=== PATIENT | female | born 1950 | race Caucasian/White ===

== ENCOUNTER 2017-08-09 09:38 | Inpatient (IN) | payer MEDICARE, BC ==
[2017-08-09 10:31] LABS: PTT 33.5 SEC (22.9-36.1); Prothrombin Time 14.6 SEC (12.0-14.7)
[2017-08-09 10:49] LABS: ALT (SGPT) 7 U/L (8-55); AST (SGOT) 10 U/L (5-34); Alkaline Phosphatase 68 U/L (40-150); Anion Gap 13 mmol/L (10-20); BUN (Urea Nitrogen) 13 mg/dL (9.8-20.1); Bilirubin, Total 0.4 mg/dL (0.2-1.2); CK (CPK) 18 U/L (29-168); Calc. Creatinine Clearance 0 mL/min (70-130); Calcium 8.5 mg/dL (7.8-10.44); Carbon Dioxide 24 mmol/L (23-31); Chloride 105 mmol/L (98-107); Estimated GFR-MDRD 47; Globulin 3.7 g/dL (2.4-3.5); Lipase Less than 4 U/L (8-78); Protein, Total 6.4 g/dL (6.0-8.3)
--- NOTE | 2017-08-09 10:51 | RAD ---
AP VIEW CHEST: HISTORY: Dyspnea. DATE: 08/09/17. COMPARISON: Comparison is made to previous exam from 04/29/17. FINDINGS: AP view chest demonstrates sternotomy wires seen. The lungs are well aerated. Mild pulmonary vascu lar congestion is seen. Mild cardiomegaly noted. Bilateral breast calcified implants seen. IMPRESSION: Mild cardiomegaly and pulmonary vascular congestion. No acute intrathoracic abnormality is seen. POS: [facility]
[2017-08-09 10:53] LABS: Troponin I Less than 0.010 ng/mL (< 0.028)
[2017-08-09 11:02] LABS: #Eosinphils 0.2 thou/uL (0.0-0.7); #Lymphocytes 1.8 thou/uL (1.20-3.40); #Monocytes 0.4 thou/uL (0.11-0.59); #Neutrophils 9.3 thou/uL (1.40-6.50); %Basophils 0.1 % (0.0-1.0); %Eosinophils 1.3 % (0.0-10.0); %Lymphocytes 15.2 % (21.0-51.0); %Monocytes 3.7 % (0.0-10.0); Mean Platelet Volume 9.8 fL (7.4-10.4); Red Blood Cell (RBC) Count 2.74 mill/uL (4.20-5.40); White Blood Cell (WBC) Count 11.7 thou/uL (4.8-10.8)
[2017-08-09] MEDS ORDERED: Furosemide 40 MG/4 ML VIAL ONE (13:05)
[2017-08-09] MEDS ORDERED: Ondansetron HCl/PF 4 MG/2 ML Vial IVP PRN (13:53)
[2017-08-09] MEDS ORDERED: Ondansetron ODT 4 MG TAB SL PRN (13:53)
[2017-08-09] MEDS ORDERED: FLU VACC QS2017-18 36 mo. & older 0.5 ML SYRINGE IM ONE (14:45)
[2017-08-09 14:55] LABS: Troponin I Less than 0.010 ng/mL (< 0.028)
[2017-08-09] MEDS ORDERED: Insulin Regular 300 UNITS/3 ML VIAL SC PRN ×2 (16:53)
[2017-08-09] MEDS ORDERED: Nitroglycerin 0.4 MG TAB (25 Tab Bottle) PO PRN (16:53)
[2017-08-09] MEDS ORDERED: Dextrose 5% in Water 1,000 ML IV PRN (16:53)
[2017-08-09] MEDS ORDERED: Dextrose 50% Abboject 50 ML SYRINGE SLOW IVP PRN (16:53)
[2017-08-09] MEDS ORDERED: Calcium Carbonate 500 MG ChewTAB PO PRN (17:02)
[2017-08-09] MEDS ORDERED: Acetaminophen 325 MG TAB PO PRN (17:02)
[2017-08-09] MEDS ORDERED: Ondansetron ODT 4 MG TAB PO PRN (17:02)
[2017-08-09] MEDS ORDERED: Loratadine 10 MG TAB PO PRN (17:07)
[2017-08-09] MEDS ORDERED: Eucerin (Mineral Oil/Petrolatum,White) 30 gm Jar TOP PRN (17:07)
[2017-08-09] MEDS ORDERED: cloNIDine HCl 0.1 MG TAB PO PRN (17:07)
[2017-08-09] MEDS ORDERED: Diabetic Tussin 200 MG/10 ML UDCUP PO PRN (17:07)
[2017-08-09 17:22] LABS: Reticulocyte Count 2.2 % (0.5-1.5)
[2017-08-09 17:35] LABS: Iron 15 ug/dL (50-170)
[2017-08-09 17:42] LABS: Troponin I Less than 0.010 ng/mL (< 0.028)
--- NOTE | 2017-08-09 17:56 | HP ---
PRIMARY CARE PHYSICIAN: Dr. Mary Huang. PRIMARY CLERICAL ASSIGNER: Dr. Jean Pierre Hart. PRIMARY HEAD BANDER AND LINER OPERATOR: Dr. Mychal Man. CHIEF COMPLAINT: Abnormal labs. CODE STATUS: FULL CODE. SURROGATE DECISION MAKER: The patient makes her own decisions with the help of her family. HISTORY OF PRESENT ILLNESS: The patient is a 66-year-old female with coronary artery disease status post stent, history of CVA, idiopathic thrombocytopenic purpura, and ischemic colitis. who presente d to the emergency room with abnormal labs. She had a routine labs that was consistent with low blo od counts, for which she was referred to the emergency room. Two weeks ago, the patient had a colonoscopy that was consistent with ischemic colitis. She was sup posed to follow up with Dr. Hart next week for a possible CT scan of the abdomen. She also has int ermittent crampy abdominal pain mainly around the periumbilical area, which is moderate to severe in intensity. She denies any nausea, vomiting. She has on and off dark stool with melanotic smell pe r patient report. No significant change in appetite or weight loss. Over the last 3-4 weeks, the patient also has exertional shortness of breath along with generalized weakness and fatigue. The patient is getting shortness of breath, walking to the bathroom over the last 3-4 days. She also noticed bilateral lower extremity swelling. She does not drink a lot of fl uid per patient report. The shortness of breath is worse on lying down. No chest pain, palpitation s, syncope reported. In the emergency room, her initial vital signs showed temperature 98.2, respirations 17, pulse 71 wi th blood pressure of 136/52 with O2 saturation 97% on room air. Initial labs showed hemoglobin 7.1 with a BNP of 71. She received a dose of Lasix 40 mg and 1 unit of PRBC was ordered. PAST MEDICAL HISTORY: 1. Coronary artery disease with stent placement to the LAD in 10/2016. 2. Ischemic CVA in 11/2016 3. Hypertension. 4. Diabetes mellitus type 2. 5. Dyslipidemia. 6. Ischemic colitis. 7. History of idiopathic thrombocytopenic purpura in 04/2017. She completed prednisone treatment f or 6-7 weeks. 8. Anemia, requiring blood transfusions in the past secondary to GI bleed. 9. Normal left ventricular ejection fraction of 50% to 55% in 11/2016. 10. Paroxysmal atrial fibrillation that spontaneously converted to sinus rhythm in 03/2017. PAST SURGICAL HISTORY: 1. EGD and colonoscopy. 2. Cardiac catheterization. 3. Coronary artery bypass grafting in 2006. 4. Bilateral tubal ligation. 5. Oophorectomy. 6. Breast augmentation. 7. Tummy tuck. 8. Knee surgery. 9. Cholecystectomy. ALLERGIES: The patient is allergic to CIPROFLOXACIN and LISINOPRIL. CURRENT HOME MEDICATIONS: The patient does not remember any of her home medications. She will try to obtain an accurate list later today. FAMILY HISTORY: Negative for premature coronary artery disease, diabetes, and hypertension. SOCIAL HISTORY: She currently lives at home. She denies current use of smoking, alcohol, or drug u se. REVIEW OF SYSTEMS: The following complete review of systems was negative, unless otherwise mentione d in the HPI or below: Constitutional: Weight loss or gain, ability to conduct usual activities. S kin: Rash, itching. Eyes: Double vision, pain. ENT/Mouth: Nose bleeding, neck stiffness, pain, tenderness. Cardiovascular: Palpitations, dyspnea on exertion, orthopnea. Respiratory: Shortness of breath, wheezing, cough, hemoptysis, fever or night sweats. Gastrointestinal: Poor appetite, a bdominal pain, heartburn, nausea, vomiting, constipation, or diarrhea. Genitourinary: Urgency, mikey quency, dysuria, nocturia. Musculoskeletal: Pain, swelling. Neurologic/Psychiatric: Anxiety, dep ression. Allergy/Immunologic: Skin rash, bleeding tendency. PHYSICAL EXAMINATION: VITAL SIGNS: In the emergency room showed temperature 98.2, respirations 17, pulse 71 with blood pr essure 136/52, with O2 saturation 97% on room air. Her lowest blood pressure in the emergency room was 86/53. GENERAL: This is a 66-year-old female in mild respiratory distress, able to complete short sentence s. HEENT: Atraumatic, normocephalic. Sclerae are anicteric, conjunctiva pale. Moist mucous membranes . No oral lesion. NECK: Supple. No carotid bruit. Neck veins somewhat distended. LUNGS: Show bibasilar crackles with scattered rhonchi. HEART: S1 and S2 present. Regular rate and rhythm. Healed midline scar from previous CABG, 2/6 sy stolic murmur over the mitral area. No parasternal heaves or pulsation. ABDOMEN: Soft. There is mild to moderate tenderness over the periumbilical area. No rebound, guar ding, no costovertebral angle tenderness. EXTREMITIES: 2+ edema in bilateral lower extremities. SKIN: Warm and dry. LYMPH NODES: No palpable lymph nodes in the neck. PERIPHERAL VASCULAR: Radial pulses palpable bilaterally. MUSCULOSKELETAL: No joint swelling or tenderness. SKIN: Warm and dry. NEUROLOGIC: Grossly nonfocal, moves all four extremities. PSYCHIATRY: Alert, awake, oriented x3. LABORATORY FINDINGS: As discussed above. Creatinine was 1.17 with BUN 13, albumin 2.7. Cardiac en zymes were normal. MCV was 84.2 with MCH 25.9, platelet count of 72. IMAGING: EKG by my review showed sinus rhythm with pathological Q-waves in lead [address]-T wave changes mainly in lead 3. Chest x-ray by my review was consistent with pulmonary vascular congestion. IMPRESSION: 1. Acute congestive heart failure exacerbation, suspected diastolic precipitated by underlying anem ia. 2. Anemia, suspected secondary to chronic gastrointestinal blood loss from ischemic colitis. 3. Acute on chronic gastrointestinal bleeding. 4. Coronary artery disease, status post coronary artery bypass grafting and stent placement. 5. History of cerebrovascular accident. 6. Thrombocytopenia. The patient also has a history of idiopathic thrombocytopenic purpura earlier this year. 7. Chronic kidney disease, stage 3. 8. Hypertension. 9. Diabetes mellitus type 2. 10. Dyslipidemia. 11. Moderate protein calorie malnutrition. 12. Obesity with a BMI of 34.2. PLAN: The patient will be monitored on the telemetry unit. We will continue gentle diuresis with c areful monitoring of renal function. She will receive blood transfusion today. We will consult Gas troenterology and Cardiology. Serial cardiac enzymes have been negative. Echocardiogram will be re peated. Pain control with narcotics. Nebulizer treatment as needed. Insulin sliding scale. We wi ll resume home medications once confirmed. Plan of care was discussed with the patient. She stated understanding.
[2017-08-09] MEDS ORDERED: Furosemide 40 MG/4 ML VIAL SLOW IVP SCH (21:00)
[2017-08-09] MEDS ORDERED: Metoprolol Tartrate 25 MG TAB PO SCH (23:30)
[2017-08-10] MEDS: Acetaminophen/Codeine 30-300mg Tablet PO PRN ×2 (03:51→20:41)
[2017-08-10] MEDS: Ondansetron HCl/PF 4 MG/2 ML Vial IVP PRN ×2 (03:54→17:57)
[2017-08-10] MEDS ORDERED: ISOVUE-370 76%-LOCM 1 ML ONE (04:06)
[2017-08-10] MEDS ORDERED: Furosemide 40 MG/4 ML VIAL SLOW IVP SCH (06:00)
[2017-08-10 06:51] LABS: #Eosinphils 0.3 thou/uL (0.0-0.7); #Lymphocytes 1.5 thou/uL (1.20-3.40); #Monocytes 0.8 thou/uL (0.11-0.59); #Neutrophils 9.4 thou/uL (1.40-6.50); %Basophils 0.3 % (0.0-1.0); %Eosinophils 2.1 % (0.0-10.0); %Lymphocytes 12.7 % (21.0-51.0); %Monocytes 6.6 % (0.0-10.0); Hematocrit 29.9 % (36.0-47.0); Red Blood Cell (RBC) Count 3.53 mill/uL (4.20-5.40)
[2017-08-10 07:14] LABS: ALT (SGPT) Less than 7 U/L (8-55); AST (SGOT) 11 U/L (5-34); Alkaline Phosphatase 75 U/L (40-150); Anion Gap 12 mmol/L (10-20); BUN (Urea Nitrogen) 17 mg/dL (9.8-20.1); Bilirubin, Total 0.6 mg/dL (0.2-1.2); Calc. Creatinine Clearance 73 mL/min (70-130); Calcium 8.4 mg/dL (7.8-10.44); Carbon Dioxide 25 mmol/L (23-31); Chloride 105 mmol/L (98-107); Estimated GFR-MDRD 52; Globulin 3.4 g/dL (2.4-3.5); Magnesium 1.6 mg/dL (1.6-2.6); Phosphorus 4.1 mg/dL (2.3-4.7); Protein, Total 6.1 g/dL (6.0-8.3)
[2017-08-10] MEDS: Multivit, Therapeutic 1 TAB PO SCH (09:14)
[2017-08-10] MEDS: Aspirin 81 mg Enteric Coated Tablet PO SCH (09:14)
--- NOTE | 2017-08-10 11:08 | CT ---
CT ARTERIOGRAM ABDOMEN AND PELVIS WITH IV CONTRAST AND 3D MIP IMAGING: HISTORY: Abdominal pain. Recurrent colitis. COMPARISON: 04/28/17. FINDINGS: There is good contrast opacification of the aorta and mesenteric arteries. Mild atherosclerosis is present without significant narrowing. Renal arteries are patent. Minimal bilateral pleural fluid is present. Bilateral breast implants are partially visualized. Th e gallbladder is surgically absent. There are degenerative changes of the lumbar spine. A small am ount of fat protrudes into an umbilical hernia. Subtle circumferential wall thickening involves the upper right colon and the transverse colon. The oval hyperdense mass at the left adnexa is unchanged in appearance from the prior exam. IMPRESSION: 1. Long-segment colitis involving the right colon and transverse colon. No arterial obstruction is evident on this exam. The central visceral arteries are widely patent. 2. Small bilateral pleural effusions. 3. Chronic-type findings are stable. POS: [facility]
--- NOTE | 2017-08-10 12:49 | PDOC.PN ---
- Subjective Encounter Start Date: 08/10/17 Encounter Start Time: 12:40 Subjective: f/u for ischemic colitis and GI bleed s/p 2u PRBC's. Feels ok overall -: with some blood in stool. CT abd showing right and transverse colon -: involvement. - Objective Resuscitation Status: Resuscitation Status FULL:Full Resuscitation MAR Reviewed: Yes Vital Signs & Weight: Vital Signs (12 hours) Temp Pulse Pulse Pulse Resp BP BP 08/10/17 12:21 98.1 F 62 18 08/10/17 11:08 08/10/17 09:09 98 F 57 L 18 08/10/17 09:06 57 L 62 151/65 H 141/63 H 08/10/17 04:00 58 L 20 BP BP BP BP Pulse Ox 08/10/17 12:21 120/58 L 96 08/10/17 11:08 97 08/10/17 09:09 134/61 151/65 H 135/64 97 08/10/17 09:06 08/10/17 04:00 155/70 H Weight Weight 190 lb 4 oz I&O: 08/09/17 08/10/17 08/11/17 06:59 06:59 06:59 Intake Total 200 Output Total 900 Balance -700 Result Diagrams: 08/10/17 05:50 08/10/17 05:50 Additional Labs: Accuchecks 08/10/17 08/10/17 08/09/17 09:15 05:54 23:25 POC Glucose 188 H 117 H 110 08/09/17 08/09/17 20:43 18:06 POC Glucose 154 H 107 Laboratory Tests 08/09/17 08/10/17 08/10/17 10:12 05:47 05:50 WBC 11.7 H Hgb 7.1 L Plt Count 72 L Neutrophils % 79.7 H 78.3 H Vitamin B12 Greater than 2000 H Folate 14.10 Radiology Reviewed by me: Yes (CT a/p - colitis of R and transverse segments, no vascular stenosis) EKG Reviewed by me: Yes (Tele - SR in 60's) Phys Exam - Physical Examination Constitutional: NAD HEENT: PERRLA, oral pharynx no lesions Neck: no JVD, supple Respiratory: no wheezing, clear to auscultation bilateral Cardiovascular: RRR mild TTP Gastrointestinal: soft, no distention, positive bowel sounds Musculoskeletal: no edema, pulses present Neurological: normal sensation, moves all 4 limbs Psychiatric: A&O x 3 Skin: normal turgor, cap refill <2 seconds Dx/Plan (1) Ischemic colitis Code(s): K55.9 - VASCULAR DISORDER OF INTESTINE, UNSPECIFIED Status: Acute Comment: Supportive measures currently, CT angio of abd showed no focal stenosis , consider abx ppx (2) Acute blood loss anemia Code(s): D62 - ACUTE POSTHEMORRHAGIC ANEMIA Status: Acute Comment: s/p 2u PRBC's, H/H improved, repeat CBC in am (3) Chronic ITP (idiopathic thrombocytopenia) Code(s): D69.3 - IMMUNE THROMBOCYTOPENIC PURPURA Status: Acute Comment: Acute/chronic ITP, consult Hematology, may need to restart steroids given decline in platelets, repeat platelets in am (4) DM2 (diabetes mellitus, type 2) Status: Chronic Qualifiers: Diabetes mellitus complication status: with unspecified complications Diabetes mellitus prison insulin use: with prison use Qualified Code(s) : E11.8 - Type 2 diabetes mellitus with unspecified complications; Z79.4 - terminal carman (current) use of insulin Comment: ISS, hold long-acting insulin pending consistent po intake (5) HTN (hypertension) Code(s): I10 - ESSENTIAL (PRIMARY) HYPERTENSION Status: Chronic Qualifiers: Hypertension type: essential hypertension Qualified Code(s): I10 - Essential (primary) hypertension Comment: Resume home antihypertensive regimen, serial monitoring - Plan out of bed/ambulate, DVT proph w/SCDs Stable currently -: Resume home antihypertensive regimen -: Protonix 40mg BID -: GI consult appreciated -: Consult Hematology service regarding restarting Prednisone * D/C Lasix * Am lab: BMP, CBC
--- NOTE | 2017-08-10 13:27 | CON ---
DATE OF CONSULTATION: 08/10/2017 GI INPATIENT CONSULTATION NOTE REQUESTING PHYSICIAN: Dr. Barnes. REASON FOR CONSULTATION: Ischemic colitis. HISTORY OF PRESENT ILLNESS: Katie Dickinson is a 66-year-old woman known to my GI colleague, Dr. Rony Hart. She has a significant history of vascular disease with CAD and CABG in 2006, recent stent placement in 10/2016, CVA in 11/2016 and then diagnosis over the last summer of ITP. She also had been having some GI bleeding and in 03/2017, Dr. Hart performed EGD and colonoscopy, this showed a few erosions in the second and third portions of the duodenum and multiple erosions and ulcerations throughout the right colon, sigmoid colon, and splenic flexure with biopsies consistent with ischemi c colitis. Unfortunately, she continued to have intermittent abdominal discomfort basically in the periumbilical area as well as intermittent black and red stools. She underwent repeat colonoscopy j ust a couple of weeks ago on 07/30/2017 and this again demonstrated ulceration of the ileocecal valv e and then a region of the splenic flexure. Biopsies were again consistent with ischemic colitis. Dr. Hart had ordered an outpatient CT angiogram of the abdomen which was set to happen later this w [place]. The patient, however, was found to have worsening anemia and was admitted to the hospital for this reason. She does report some increasing shortness of breath and fatigue over the past few week s. The crampy periumbilical pain is intermittent. She also intermittently will have black stools o r reddish tint to the stools. There is no nausea or vomiting or weight loss. She has had very loos e stools since her colonoscopy a couple of weeks ago. Admission hemoglobin was 7.1 and this went up to 9.5 with 2 units of RBCs, platelets are 69. PAST MEDICAL HISTORY: Coronary artery disease status post CABG in 2006, cardiac stent placement in 10/2016, CVA 11/2016, ITP diagnosed in summer, ischemic colitis diagnosed earlier 2016, hype rtension, hyperlipidemia, diabetes, paroxysmal atrial fibrillation. PAST SURGICAL HISTORY: Cholecystectomy, knee surgery, bilateral tubal ligation, oophorectomy. ALLERGIES: CIPROFLOXACIN and LISINOPRIL. OUTPATIENT MEDICATIONS: Metoprolol, Prozac, Zyrtec, aspirin 325 mg daily, gabapentin, Flonase, losa rtan, Imdur, DuoNeb, insulin, Dulera, Robaxin, Crestor, Protonix 40 mg b.i.d., montelukast, predniso ne 50 mg b.i.d., clonidine and Januvia. SOCIAL HISTORY: No smoking, alcohol, or drug use. FAMILY HISTORY: Maternal aunt and paternal uncle had colon cancer. PHYSICAL EXAMINATION: VITAL SIGNS: Temperature 98.8, pulse 58, blood pressure 155/70, 94% oxygen saturation on room air. GENERAL: A 66-year-old woman lying in bed comfortably in no distress, mentally alert and fully orie nted, pleasant, conversational, gives a detailed history. SKIN: No jaundice, no rashes were palpable. EYES: No scleral icterus. Extraocular movements intact. ENT: Mucous membranes moist, no oral lesions. LYMPH: No submandibular or supraclavicular lymphadenopathy. THYROID: Nontender to palpation. HEART: Regular rate and rhythm. LUNGS: Clear to auscultation bilaterally. ABDOMEN: Bowel sounds present, soft, some tenderness to palpation in the epigastrium and periumbili mily area. No guarding or rebound tenderness. EXTREMITIES: No peripheral edema. VESSELS: Radial pulses 2+ bilaterally. NEUROLOGICAL: Cranial nerves II-XII intact bilaterally. No focal deficits. LABORATORY STUDIES: WBC 12, hemoglobin initially 7.1 now up to 9.5 after 2 units transfused, platel ets 69. INR 1.1, BUN 17, creatinine 1.07, glucose 117, total bilirubin 0.6, alkaline phosphatase 75 , AST 11, ALT less than 7, albumin 2.7, folic acid 11. Lipase less than 4. Ferritin 49, iron 15, T IBC 239 (mixed iron studies). IMAGING STUDIES: Chest x-ray showed mild cardiomegaly and pulmonary vascular congestion. ASSESSMENT AND PLAN: 1. Recurrent gastrointestinal bleeding. 2. Anemia of chronic gastrointestinal blood loss. 3. Recurrent/chronic ischemic colitis. The patient's presentation is consistent with chronic ische celine colitis and gastrointestinal blood loss from that, she had a colonoscopy just within the past co uple of weeks and I do not think there is any utility to repeating endoscopic examination at this ti me. Dr. Hart had planned for CT angiogram of the abdomen and I agree with this plan. We will go ea and get that while inpatient. I will also see she had an echocardiogram done earlier this noemi leonard, which I agree. We will follow results on that. Further recommendations depend on results of CT and echocardiogram.
[2017-08-10] MEDS: Mometasone/Formoterol 120 PUFF INHALER INH SCH (20:11)
--- NOTE | 2017-08-10 20:34 | CON ---
CARDIOLOGY CONSULTATION NOTE DATE OF CONSULTATION: 08/10/2017 INDICATION FOR CONSULTATION: Consideration for congestive heart failure symptoms, anemia, history o f coronary artery disease with increasing shortness of breath, fatigue and thrombocytopenia as well as anemia. HISTORY OF PRESENT ILLNESS: This is a very unfortunate 66-year-old female who has a very extensive past medical history. From a cardiac standpoint, she has been seen by Dr. Man. She has under gone cardiac catheterization. She has had bypass surgery. She has had a stent placed to the distal left anterior descending artery via the left internal mammary artery approach with a drug-coated st ent in November of this year. She was placed with a 2.5 x 12 mm drug-coated stent, which was dilated up to 3.0 mm and she has had no significant cardiac chest pains or symptoms since that time. She s aid she had shortness of breath prior to the procedure and was having some ischemic changes; however , since the procedure, she has not noticed that her shortness of breath has improved. She did have some problems approximately a week or so after the angioplasty and stent placement. She had a small CVA, which is most likely from an embolic event. She had also previously had a CVA in the past man y years ago. She had been placed on Plavix for 6 months after the stent placement. She had develop ed at that time thrombocytopenia and also ITP which is felt possibly due to the Plavix. This medici ne had already been stopped prior to noting that the platelets were significantly decreased, but it had only been a week or so. She had also noticed some GI bleeding. She had anemia. This was back in April when she had a GI bleed, apparently with significant anemia. The platelets also had recover ed and now she again for the last couple of weeks has noticed increasing shortness of breath and low er extremity edema. She presented to the primary care physician and was again found to have thrombo cytopenia as well as anemia and she was advised to go to the emergency room for further evaluation a nd treatment. On arrival, her hemoglobin was 7.1, the platelet counts are less than 100,000. She i s not having any chest pain. Her EKG do not show any acute changes, but she does have some mild low er extremity edema. She has been given IV Lasix and has diuresed quite well. She feels somewhat be tter, but still fatigued and has some shortness of breath. At this time, overall from a cardiac sta ndpoint, she remains in sinus rhythm without chest pain and appears to be relatively stable except f or the associated symptoms with the anemia. She has undergone further evaluation today, has not had any significant findings as an etiology for this significant anemia except for the previous, I mauricio vidhya some polyps in the past, but she has had no significant findings on CT angiogram that would shona efrain severe arterial stenosis involving the colon area. She has had, during her scopes, colitis an d inflammation, which was felt to be ischemic colitis causing some of her GI bleeding issues. She h as been taking aspirin 325 mg a day on a routine basis. PAST MEDICAL AND SURGICAL HISTORY: Her past medical history is consistent with paroxysmal atrial fi brillation. She has remained in sinus rhythm. She also has hypertension, coronary artery disease, status post bypass surgery, status post angioplasty and stent placement. She has dyslipidemia, hype rtension, diabetes. She has had a CVA several years ago and a repeat small CVA in November of this y ear, which she says she has recovered. She has had breast augmentation, cholecystectomy, right ovar jameel surgery. She has had a lumbar spine surgery. She has had a tummy tuck. She has had left knee surgery. She has had a right total knee replacement. She needs to undergo left knee replacement. She has arthritis. She has asthma. ALLERGIES: She is allergic to LISINOPRIL and possibly also to PLAVIX. This was felt that this may have been the basis of the ITP. MEDICATIONS: Her medications prior to admission included Zyrtec, montelukast, clonidine, Januvia, l osartan, pantoprazole, Breo Ellipta, Crestor, Humalog insulin, aspirin, Robaxin, gabapentin, Toprol- XL and Toujeo Solostar; this is an insulin which she has injected and she has isosorbide mononitrate 60 mg slow release for every 24 hours. FAMILY HISTORY: No acute problems associated with her present illness. SOCIAL HISTORY: No alcohol or tobacco abuse. She is . She lives at home. REVIEW OF SYSTEMS: Mainly in 12-point review of systems, she complains of dyspnea and some mild low er extremity edema and fatigue and some occasional GI bleeding. Otherwise, her 12-point review of s ystems is unremarkable. PHYSICAL EXAMINATION: GENERAL: Reveals a middle-aged female. VITAL SIGNS: Blood pressure is 120/58, earlier was 151/65. Heart rate is 62 and regular. Respirat ory rate is 18. She is afebrile. O2 saturation 96%. HEENT: Reveals the head to be normocephalic and atraumatic. She has a left carotid bruit noted. I did not hear bruit on the right. Pulses are present. CHEST: Her chest is actually clear. I did not hear any rales, rhonchi or wheezing at this time. CARDIOVASCULAR: Exam reveals a regular rate and rhythm with an S1 and S2. I did not hear an S3 nor an S4. She has a well-healed midline surgical incision after median sternotomy. ABDOMEN: Soft and nontender. She has well-healed surgical incisions. EXTREMITIES: Showed no clubbing or cyanosis. She has trace lower extremity edema. Pedal pulses ar e present, but somewhat decreased. NEUROLOGIC: She appears to be intact. SKIN: Warm and dry at this time. IMPRESSION AND PLAN: 1. Significant anemia and thrombocytopenia of uncertain etiology. As far as her thrombocytopenia i s concerned, this certainly may be the cause of some of her increasing shortness of breath, which rajan ve been worse over the last couple of weeks, but she has had chronic shortness of breath for about 3 years. She was given, I believe 2 units of packed red blood cells and the hemoglobin has increased up to 9.5. She will most likely need to be seen again by the can striper. She has also been seen by the credit correspondence clerk and was found to have the ischemic colitis, but there were no significant abnormalities noted on the CT angiogram. 2. Coronary artery disease, which appears to be stable at this time. 3. History of cerebrovascular accidents in the past. There is no indication she has had suffered a ny other further embolic phenomenon. 4. Hypertension. This is under good control at this time. 5. Diabetes. This is also under reasonable control. We will continue to follow her very carefully . There has been some discussion in the past as to whether or not she might be a candidate for the Watchman device that I believe this also would require that she be on antiplatelet medications for a t least a couple of months, but we can discuss this with the contact lens cutter to see whether or n ot she would be a candidate to proceed without any type of long term care social worker oral anticoagulation. She also had an echocardiogram performed. We will review this today to see whether or not she has any indic ation of decreasing ejection fraction, which may be also contributing some to congestive heart failu re symptoms.
[2017-08-10] MEDS: Losartan Potassium 25 MG TAB PO SCH (20:42)
[2017-08-10] MEDS: cloNIDine HCl 0.1 MG TAB PO SCH (20:42)
[2017-08-10] MEDS ORDERED: Gabapentin 400 MG CAP PO SCH (21:00)
[2017-08-10] MEDS ORDERED: Montelukast Sodium 10 mg Tablet PO SCH (21:00)
[2017-08-11 06:02] LABS: Hematocrit 31.8 % (36.0-47.0); Mean Platelet Volume 9.7 fL (7.4-10.4); Red Blood Cell (RBC) Count 3.75 mill/uL (4.20-5.40); White Blood Cell (WBC) Count 6.2 thou/uL (4.8-10.8)
[2017-08-11 06:13] LABS: Anion Gap 10 mmol/L (10-20); BUN (Urea Nitrogen) 12 mg/dL (9.8-20.1); Calc. Creatinine Clearance 85 mL/min (70-130); Calcium 8.7 mg/dL (7.8-10.44); Carbon Dioxide 31 mmol/L (23-31); Chloride 102 mmol/L (98-107); Estimated GFR-MDRD 62
[2017-08-11] MEDS: Mometasone/Formoterol 120 PUFF INHALER INH SCH (07:26)
[2017-08-11] MEDS ORDERED: Alogliptin Benzoate 25 MG TABLET PO SCH (09:00)
[2017-08-11] MEDS ORDERED: Fluticasone Propionate Nasal Spray 16 gm Bottle NASAL SCH (09:00)
[2017-08-11] MEDS ORDERED: Methocarbamol 500 MG TAB PO SCH (09:00)
[2017-08-11] MEDS ORDERED: Furosemide 40 MG/4 ML VIAL SLOW IVP SCH (09:00)
[2017-08-11] MEDS ORDERED: FLUoxetine HCl 10 MG CAP PO SCH (09:00)
[2017-08-11] MEDS ORDERED: Loratadine 10 MG TAB PO SCH (09:00)
[2017-08-11] MEDS: Aspirin 81 mg Enteric Coated Tablet PO SCH (09:18)
[2017-08-11] MEDS: cloNIDine HCl 0.1 MG TAB PO SCH (09:18)
[2017-08-11] MEDS: Multivit, Therapeutic 1 TAB PO SCH (09:19)
[2017-08-11] MEDS: Losartan Potassium 25 MG TAB PO SCH (09:23)
--- NOTE | 2017-08-11 10:27 | PRG ---
DATE OF SERVICE: 08/11/2017 GI INPATIENT DAILY PROGRESS NOTE SUBJECTIVE: Ms. Dickinson is feeling okay. No abdominal pain. Tolerating her diet. No new complain ts. OBJECTIVE: VITAL SIGNS: Temperature 98.2, pulse 63, blood pressure 112/55, 93% oxygen saturation on room air. GENERAL: No acute distress, lying in bed comfortably. HEART: Regular rate and rhythm. LUNGS: Clear to auscultation bilaterally. ABDOMEN: Soft and nontender to palpation. EXTREMITIES: No peripheral edema. LABORATORY STUDIES: WBC 6.2, hemoglobin up to 10.0 from 9.5 yesterday, platelets 74, INR 1.1. Sodi um 139, potassium 3.8, BUN 12, creatinine 0.91, glucose 161. IMAGING STUDIES: CT angiogram of the abdomen and pelvis performed yesterday demonstrated long segme nt colitis involving the right colon and the transverse colon consistent with what was seen on her r ecent colonoscopy. There is no arterial obstruction evident on this exam. The central visceral art eries were widely patent. ASSESSMENT AND PLAN: 1. Chronic ischemic colitis, right-sided. 2. Intermittent gastrointestinal bleeding secondary to #1. 3. Anemia of chronic gastrointestinal blood loss. I had a long discussion with the patient regarding her presentation and CT findings. Thankfully, th ere does not appear to be any macrovascular disease to the mesenteric vessels, her ischemic colitis is in the SMA distribution. This is likely secondary to chronic microvascular changes in that area, which may be related to her ITP. We discussed that about 20% of patients with ischemic colitis adam l eventually need surgery if complications are present such as chronic ongoing bleeding or fibrosis and stenosis of the area. There is no indication for repeat colonoscopy at this time. She is stabl e at the present time.
--- NOTE | 2017-08-11 13:15 | CON ---
DATE OF CONSULTATION: 08/11/2017 REASON FOR CONSULT: Thrombocytopenia. HISTORY OF PRESENT ILLNESS: Ms. Dickinson is a 66-year-old female who was diagnosed with ITP in 03/22 17 when she presented to this hospital with a GI bleed and a platelet count of 5000. Her platelet c ount 10 days prior to the hospitalization was 304,000. She underwent upper and lower endoscopy by Beka Stafford, which showed healing erosions of the duodenum and erosions and ulcerations in the sigmoid colon, splenic flexure in the right colon, concerning for ischemic colitis. She had coronary arter y stenting in 09/2016 and had been started on Plavix just prior to the development of thrombocytopen ia, both aspirin and Plavix were discontinued at that time. Her platelet count increased to 25,000. She presented to the ER approximately 1 month later with again a recurrent GI bleed. Her platelet count on that admission was 3000. She had not resumed the Plavix. Her diagnosis of ITP was made a t that time. She was started on high dose prednisone and her platelet count improved to normal woul d had been until she presented to the ER, on the with shortness of breath. Routine labs showed hemoglobin of 7.3, her platelets were 47,000. She was transfused 2 units and her RBCs have responde d and now at 10. Her platelet count has slowly trended upward and is now 74,000. Patient has again been evaluated by GI and noted to have ischemic colitis. Her shortness of breath is markedly impro celso. She denies any petechial rash, which she had on presentation at time of diagnosis. PAST MEDICAL HISTORY: 1. ITP diagnosed 04/2017. 2. Coronary artery disease. 3. Cerebrovascular accident. 4. Hypertension. 5. Diabetes mellitus 2. 6. Dyslipidemia. 7. Ischemic colitis. 8. Gastrointestinal bleed. PAST SURGICAL HISTORY: 1. Multiple EGD and colonoscopies. 2. Cardiac catheterization. 3. Coronary artery bypass grafting. 4. Bilateral tubal ligation. 5. Oophorectomy. 6. Breast augmentation. 7. Tummy tuck. 8. Knee surgery. 9. Cholecystectomy. ALLERGIES: Allergic to CIPROFLOXACIN, LISINOPRIL. CURRENT MEDICATION LIST: Per computer. FAMILY HISTORY: No history of bleeding disorders. SOCIAL HISTORY: , has 2 children, lives with her spouse. No alcohol, tobacco, or illicit dr ug use. REVIEW OF SYSTEMS: Twelve point review of systems is negative except for noted in the HPI. PHYSICAL EXAMINATION: VITAL SIGNS: Temperature 98.2, pulse of 63, respiratory 16, BP is 112/55. She is 93% on room air. GENERAL: Well-developed, well-nourished female in no acute distress. HEENT: Normocephalic, atraumatic. Pupils are equal and reactive to light. NECK: Supple. CARDIOVASCULAR: Regular rate and rhythm. She has a 2/6 murmur. LUNGS: Clear to auscultation. ABDOMEN: Soft, nontender, obese, bowel sounds are positive. EXTREMITIES: No clubbing, cyanosis, or edema. SKIN: No petechial rash. NEUROLOGIC: Nonfocal. PSYCHIATRIC: The patient is alert and oriented. PERTINENT LABORATORY AND X-RAYS: Current WBCs are 6.2, hemoglobin 10, hematocrit 31.8, platelet cou nt 74,000. PT is 14.3, INR is 1.1, PTT is 33.5. Sodium is 139, potassium 3.8, chloride 102, CO2 is 31, BUN is 12, creatinine 0.91, calcium is 8.7. ASSESSMENT: 1. Symptomatic anemia. 2. Thrombocytopenia with history of idiopathic thrombocytopenic purpura. 3. Ischemic colitis. DISCUSSION: Patient's platelet count has been normal until most recently she has slowly trended jason n and her hemoglobin over the past several weeks, so it appears that the anemia has come before the thrombocytopenia. Her platelets have recovered at this time and require no intervention in the acut e setting. She is okay to be discharged from our perspective, she needs a CBC on to ensure that her platelets are trending back to normal and she will have an appointment with Dr. Roberto ne xt week to discuss further treatment options. Thank you for the consult.
[2017-08-11 14:35] VITALS: BMI 33.5
--- NOTE | 2017-08-11 15:20 | PDOC.PN ---
- Subjective Encounter Start Date: 08/11/17 Encounter Start Time: 15:15 - Objective Resuscitation Status: Resuscitation Status FULL:Full Resuscitation Vital Signs & Weight: Vital Signs (12 hours) Temp Pulse Pulse Pulse Resp BP BP 08/11/17 12:10 98.3 F 58 L 18 08/11/17 09:51 67 70 138/62 122/68 08/11/17 08:00 98.3 F 58 L 18 08/11/17 07:48 98.2 F 63 16 08/11/17 03:24 98.6 F 60 16 BP BP BP Pulse Ox Pulse Ox Pulse Ox 08/11/17 12:10 108/54 L 93 L 08/11/17 09:51 97 96 08/11/17 08:00 93 L 08/11/17 07:48 112/55 L 93 L 08/11/17 03:24 121/57 L Weight Admit Weight 193 lb 8 oz Weight 189 lb I&O: 08/10/17 08/11/17 08/12/17 06:59 06:59 06:59 Intake Total 200 840 Output Total 900 3400 Balance -700 -2560 Result Diagrams: 08/11/17 05:33 08/11/17 05:33 Additional Labs: Accuchecks 08/11/17 08/11/17 08/11/17 11:32 08:19 06:48 POC Glucose 175 H 243 H 161 H 08/11/17 08/11/17 08/10/17 03:27 00:42 21:09 POC Glucose 108 160 H 111 H 08/10/17 08/10/17 18:12 12:14 POC Glucose 184 H 162 H Dx/Plan (1) Ischemic colitis Code(s): K55.9 - VASCULAR DISORDER OF INTESTINE, UNSPECIFIED Status: Acute Comment: Supportive measures currently, CT angio of abd showed no focal stenosis , consider abx ppx (2) Acute blood loss anemia Code(s): D62 - ACUTE POSTHEMORRHAGIC ANEMIA Status: Acute Comment: s/p 2u PRBC's, H/H improved, repeat CBC in am (3) Chronic ITP (idiopathic thrombocytopenia) Code(s): D69.3 - IMMUNE THROMBOCYTOPENIC PURPURA Status: Acute Comment: Acute/chronic ITP, consult Hematology, may need to restart steroids given decline in platelets, repeat platelets in am (4) DM2 (diabetes mellitus, type 2) Status: Chronic Qualifiers: Diabetes mellitus complication status: with unspecified complications Diabetes mellitus regional intermodal truck driver insulin use: with regional intermodal truck driver use Qualified Code(s) : E11.8 - Type 2 diabetes mellitus with unspecified complications; Z79.4 - intermediate teacher (current) use of insulin Comment: ISS, hold long-acting insulin pending consistent po intake (5) HTN (hypertension) Code(s): I10 - ESSENTIAL (PRIMARY) HYPERTENSION Status: Chronic Qualifiers: Hypertension type: essential hypertension Qualified Code(s): I10 - Essential (primary) hypertension Comment: Resume home antihypertensive regimen, serial monitoring - Plan * .
--- NOTE | 2017-08-11 15:48 | PDOC.CTH ---
<Breanne Woods - Last Filed: 08/11/17 15:45> Cardiology Progress Note - Subjective The pt was seen and examined. No overnight events. No cardiac complaints. She still has SOB, which she complains for a while. - Objective Vital Signs Temp Pulse Pulse Pulse Resp BP BP 08/11/17 12:10 98.3 F 58 L 18 08/11/17 09:51 67 70 138/62 122/68 08/11/17 08:00 98.3 F 58 L 18 08/11/17 07:48 98.2 F 63 16 BP BP Pulse Ox Pulse Ox Pulse Ox 08/11/17 12:10 108/54 L 93 L 08/11/17 09:51 97 96 08/11/17 08:00 93 L 08/11/17 07:48 112/55 L 93 L Admit Weight 193 lb 8 oz Weight 189 lb 08/10/17 08/11/17 08/12/17 06:59 06:59 06:59 Intake Total 200 840 Output Total 900 3400 Balance -700 -2560 - Physical Examination General/Neuro: alert & oriented x3 Neck: no JVD present Lungs: CTA (diminished at bases) Heart: RRR Abdomen: soft Extremities: other: (No edema) - Telemetry Telemetry Rhythm: SB and SR - Labs Result Diagrams: 08/11/17 05:33 08/11/17 05:33 Troponin/CKMB CK-MB (CK-2) 0.3 ng/mL (0-6.6) 08/09/17 10:12 Troponin I Less than 0.010 ng/mL (< 0.028) 08/09/17 17:03 - Assessment/Plan 1. Chronic Idiopathic Thrombocytopenia - Stable today; consult by oncologist 2. Anemia - Hgb 10, Hct 31.8, Plt 74 today from 69 yesterday 3. CAD - on BBlocker 4. HTN - well controlled with current medicaiton 5. DM type 2 - managed by PCP 6. Ischemic colitis - Protonix BID MAR reviewed *From Cardiac standpoint, The pt is stable to d/c home; The pt will f/u with Dr Man's office within 2wks. Review of Systems - Review of Systems Constitutional: reports: no symptoms reported EENTM: reports: no symptoms reported Respiratory: reports: see HPI Cardiac (ROS): reports: no symptoms reported ABD/GI: reports: no symptoms reported : reports: no symptoms reported Musculoskeletal: reports: no symptoms reported <Minnie Valles - Last Filed: 08/11/17 17:03> Cardiology Progress Note - Objective Vital Signs Temp Pulse Pulse Pulse Resp BP BP 08/11/17 12:10 98.3 F 58 L 18 08/11/17 09:51 67 70 138/62 122/68 08/11/17 08:00 98.3 F 58 L 18 08/11/17 07:48 98.2 F 63 16 BP BP Pulse Ox Pulse Ox Pulse Ox 08/11/17 12:10 108/54 L 93 L 08/11/17 09:51 97 96 08/11/17 08:00 93 L 08/11/17 07:48 112/55 L 93 L Admit Weight 193 lb 8 oz Weight 189 lb 08/10/17 08/11/17 08/12/17 06:59 06:59 06:59 Intake Total 200 840 Output Total 900 3400 Balance -700 -2560 - Labs Result Diagrams: 08/11/17 05:33 08/11/17 05:33 Troponin/CKMB CK-MB (CK-2) 0.3 ng/mL (0-6.6) 08/09/17 10:12 Troponin I Less than 0.010 ng/mL (< 0.028) 08/09/17 17:03 - Assessment/Plan Pt. seen and eval. by me. I agree with the A/P by the INFECTION CONTROL PREVENTIONIST. Pt. is going home today. The platelets seem to be stabalizing but still low.
[2017-08-11 17:08] VITALS: BP 108/57; TEMP 98
--- NOTE | 2017-08-11 19:56 | DIS ---
DATE OF ADMISSION: 08/09/2017 DATE OF DISCHARGE: 08/11/2017 DISCHARGE DIAGNOSES: 1. Acute on chronic ischemic colitis of the right and transverse colon. 2. Acute blood loss anemia status post 2 units of packed red blood cells. 3. Chronic thrombocytopenia with history of idiopathic thrombocytopenia purpura. 4. Diabetes mellitus type 2, insulin requiring. 5. Hypertension, stable. 6. Coronary artery disease, status post stent placement to the left anterior descending artery, chr onic and stable. CONSULTATIONS: Dr. Garcia with GI Service, Hematology service. PERTINENT LABORATORY DATA AND X-RAY FINDINGS: Basic metabolic profile within normal limits. Magnes ium 1.6, phosphorus 4.1. LFTs within normal limits. Serum iron level 15, TIBC 239, ferritin 49.24. BNP 771. Vitamin B12 level greater than 2,000, folate 14.1. CBC showed a white blood cell count ranged between 6.2-12.0, hemoglobin ranged between 7.1-10.0, platelet count ranged between 69-74,000 . Reticulocyte count 2.2. Immature reticulocyte fraction 0.50. Portable chest x-ray dated showed mild pulmonary vascular prominence. CT angiogram of the abdomen and pelvis dated showed long segment colitis of the right and transverse colon. No arterial obstruction noted. A 2D transthoracic echocardiogram dated 08/10/2017 showed ejection fraction of 55%-60%. Probable di astolic dysfunction. Moderate mitral valve regurgitation. HOSPITAL COURSE: Patient was admitted to the telemetry unit after initially presenting with acute b lood loss anemia secondarily to acute on chronic ischemic colitis with confirmation by CT imaging. The patient was initially transfused 2 units of packed red blood cells after initial hemoglobin was noted at 7.1. The patient tolerated the transfusion without difficulty and serial monitoring of hem oglobin showed overall stable trend. The patient was evaluated by the GI Service, undergoing CT ang iogram of the abdomen and pelvis showing no evidence of arterial stenosis and likely microvascular i nduced ischemic colitis. The patient was also evaluated by the Hematology Service due to history of thrombocytopenia and ITP previously treated with prednisone therapy. No specific or imminent treat ment recommended; however, patient will need serial monitoring on an ongoing basis as an outpatient. Overall, the patient remained clinically stable through the remainder of the hospital course with telemetry monitoring showing sinus mechanism without evidence of acute arrhythmia or dysrhythmia. T he patient is stable and ready for discharge on 08/11/2017. DISCHARGE MEDICATIONS: 1. Aspirin 81 mg 1 tablet p.o. daily. 2. Cetirizine 10 mg 1 tablet p.o. daily. 3. Prozac 10 mg p.o. q.a.m. 4. Flonase nasal spray 1 spray in each naris daily. 5. Neurontin 400 mg p.o. at bedtime. 6. Glargine insulin 20 units subcutaneously at bedtime. 7. DuoNebs 3 mL nebulized q.i.d. p.r.n. 8. Imdur 60 mg p.o. daily. 9. Cozaar 25 mg p.o. b.i.d. 10. Robaxin 500 mg 1 tablet p.o. daily. 11. Metoprolol succinate XL 25 mg p.o. daily. 12. Dulera 2 puffs inhaled b.i.d. 13. Singulair 10 mg p.o. at bedtime. 14. Protonix 40 mg 1 tablet p.o. daily. 15. Crestor 20 mg p.o. at bedtime. 16. Clonidine 0.1 mg p.o. b.i.d. 17. Januvia 100 mg 1 tablet p.o. daily. FOLLOWUP: Patient will follow up with her primary care provider, Dr. Mary Huang within 3 days of discharge. Patient will follow up with Dr. Shashank Roberto with Hematology Service 2 weeks after d ischarge. The patient will follow up with Dr. Jasbir Garcia and to call his office for appointment kermit e and date. CONDITION ON DISCHARGE: Stable. ACTIVITY: Ad juni. DIET: Heart healthy and ADA. SPECIAL INSTRUCTIONS: Repeat CBC on 08/14/2017. CODE STATUS: FULL. DISPOSITION: Home on 08/11/2017. Total time preparing and coordinating discharge is 33 minutes.
--- NOTE | 2017-08-12 06:41 | EKG ---
Test Reason : Blood Pressure : / mmHG Vent. Rate : 063 BPM Atrial Rate : 063 BPM P-R Int : 142 ms QRS Dur : 080 ms QT Int : 466 ms P-R-T Axes : -09 024 026 degrees QTc Int : 476 ms Normal sinus rhythm Nonspecific ST abnormality Abnormal ECG Confirmed by STEPHEN GALLOWAY, MARILUZ ([id number]), visual effects editor CLINTON PEARSON ([id number]) on 08/12/2017 6:41:11 AM Referred By: Confirmed By:MARILUZ MITCHELL MD
== END 2017-08-11 18:05 | disposition home or self-care (01) | DRG 393 ==
LOC: ERS 09:38 → 2NO 13:45
PROVIDERS: ADMIT Internal Medicine; ATTEND Internal Medicine
PROC: 30233N1 Transfusion of Nonautologous Red Blood Cells into Peripheral Vein, Percutaneous Approach (ICD-10-PCS; principal; 2017-08-09)
DX: K55.039 Acute (reversible) ischemia of large intestine, extent unspecified (principal); I50.33 Acute on chronic diastolic (congestive) heart failure; D69.3 Immune thrombocytopenic purpura; E11.22 Type 2 diabetes mellitus with diabetic chronic kidney disease; E44.0 Moderate protein-calorie malnutrition; N18.3 Chronic kidney disease, stage 3 (moderate); D62 Acute posthemorrhagic anemia; I48.0 Paroxysmal atrial fibrillation; I13.0 Hypertensive heart and chronic kidney disease with heart failure and stage 1 through stage 4 chronic kidney disease, or unspecified chronic kidney disease; E78.5 Hyperlipidemia, unspecified; Z86.73 Personal history of transient ischemic attack (TIA), and cerebral infarction without residual deficits; J44.9 Chronic obstructive pulmonary disease, unspecified; I25.10 Atherosclerotic heart disease of native coronary artery without angina pectoris; Z95.5 Presence of coronary angioplasty implant and graft; E66.9 Obesity, unspecified; Z68.34 Body mass index [BMI] 34.0-34.9, adult; Z95.1 Presence of aortocoronary bypass graft
CPT/HCPCS: 36415; 36416; 36430; 71010; 74174; 80048; 80053; 82550; 82553; 82565; 82607; 82728; 82746; 83540; 83550; 83690; 83735; 83880; 84100; 84484; 85007; 85025; 85027; 85046; 85060; 85610; 85730; 86850; 86870; 86900; 86901; 86905; 86922; 90471; 90682; 93005; 93306; 93798; 94664; 94760; 96374; G0008; J1815; J1940; J2405; P9016; Q0162; Q2036

== ENCOUNTER 2017-10-26 11:26 | Inpatient (IN) | payer MEDICARE, BC ==
[2017-10-26 13:26] LABS: Hematocrit 21.6 % (36.0-47.0); Red Blood Cell (RBC) Count 2.55 mill/uL (4.20-5.40); White Blood Cell (WBC) Count 12.9 thou/uL (4.8-10.8)
[2017-10-26 13:41] LABS: #Eosinphils 0.2 thou/uL (0.0-0.7); #Lymphocytes 2.6 thou/uL (1.20-3.40); #Monocytes 0.6 thou/uL (0.11-0.59); #Neutrophils 9.5 thou/uL (1.40-6.50); %Basophils 0.2 % (0.0-1.0); %Eosinophils 1.6 % (0.0-10.0); %Lymphocytes 20.1 % (21.0-51.0); %Monocytes 4.4 % (0.0-10.0); Anisocytosis SLIGHT = 6-15 cells (100X) (0-5/hpf); Hypochromia SLIGHT = 6-15 cells (100X) (0-5/hpf); Ovalocytes SLIGHT = 2-5 cells (100X) (0-1/hpf); Polychromasia SLIGHT = 2-3 cells (100X) (0-2/hpf); Tear Drops SLIGHT = 2-5 cells (100X) (0-1/hpf)
[2017-10-26 13:42] LABS: Troponin I 0.028 ng/mL (< 0.028)
[2017-10-26 13:47] LABS: ALT (SGPT) 10 U/L (8-55); AST (SGOT) 12 U/L (5-34); Alkaline Phosphatase 50 U/L (40-150); Anion Gap 17 mmol/L (10-20); BUN (Urea Nitrogen) 30 mg/dL (9.8-20.1); Bilirubin, Total 0.4 mg/dL (0.2-1.2); CK (CPK) 30 U/L (29-168); Calc. Creatinine Clearance 0 mL/min (70-130); Calcium 8.6 mg/dL (7.8-10.44); Carbon Dioxide 19 mmol/L (23-31); Chloride 106 mmol/L (98-107); Estimated GFR-MDRD 31; Globulin 2.5 g/dL (2.4-3.5); LDH 185 U/L (125-220); Lipase 19 U/L (8-78); Magnesium 2.3 mg/dL (1.6-2.6); Protein, Total 5.9 g/dL (6.0-8.3)
--- NOTE | 2017-10-26 14:09 | RAD ---
AP VIEW CHEST: Date: 10/26/17 HISTORY: Shortness of breath. FINDINGS: AP view chest obtained. Sternotomy wires seen. Bilateral breast augmentation calcifications seen. No evidence of effusions, pneumonia, or pneumothorax seen. IMPRESSION: Unremarkable AP view chest. POS: BALDO
[2017-10-26 14:19] LABS: PTT 28.9 SEC (22.9-36.1)
[2017-10-26 17:44] LABS: Bilirubin Small (Negative); Blood, Urine Large (Negative); Glucose, Urine (Dipstick) Negative (Negative); Ketone, Urine Negative (Negative); Nitrite Negative (Negative); Protein, Urine (Dipstick) Negative (Neg-Trace); Urobilinogen 0.2 mg/dL (0.2-1.0)
[2017-10-26 17:47] LABS: Bacteria/HPF Rare-Few HPF (None Seen); Squamous Epithelial 21-50 HPF (0-3)
[2017-10-26 17:49] LABS: Hyaline Casts/LPF 0-3 HYALINE CAST LPF (0-3 Hyaline)
--- NOTE | 2017-10-26 18:25 | HP ---
DATE OF ADMISSION: 10/26/2017 PRIMARY CARE PHYSICIAN: Mary Huang D.O. CHIEF COMPLAINT: Shortness of breath. HISTORY OF PRESENTING ILLNESS: Ms. Dickinson is a 67-year-old female with known history of c hronic ischemic colitis of right and transverse colon as well as idiopathic thrombocytopenic purpura and diabetes, who presented to the emergency room with the above-mentioned complaints. She also has history of atrial fibrillation as well as coronary artery disease. Ms. Dickinson says that she has been having some on and off shortness of breath with exertion almost al l the time, but since last 2 days it has gotten really bad. She has to lie down because she is not a ble to move around without getting short of breath. She denies any chest pain. She denies any recen t illnesses. No fever, chills or cough. She denies any orthopnea or PND. Upon presentation to the emergency room, she was found to have gross abnormalities on her blood work including hemoglobin of 6.7 with platelet count of 3000. The patient reports that she always has neisha e blood in her stools, but in the last 2 days she has noticed more blood. She has been scoped. Her last admission to our facility was in 08/2017 at which time she underwent a GI evaluation by Dr. Stafford. She underwent EGD and colonoscopy, which was consistent with acute and chronic ischemic coli tis of the right and transverse colon. She reports that she has seen Dr. Hart since then and he wan ts her to have colectomy. She is still thinking about if she would like to undergo the surgery or no t. Meanwhile, she continues to have what sounds like a slow gastrointestinal bleed. With regards to her ITP, she actually has not been able to follow up at the [facility]. She i s currently not on any steroids either. She also has a history of atrial fibrillation and follows up with Dr. Man. She was referred to Dr. Ramirez for Watchman device and incidentally was started on Coumadin about 1 week ago in preparat ion for that. Fortunately, she has stopped it because her INR was 7 few days ago. She was supposed to restart it at 1 mg tonight, but she has not been able to do so. Her INR today is 1.3. In the emergency room, she was hemodynamically stable. She has orders for 1 unit of platelets and 2 units of packed RBC and is being admitted to [facility] for acute blood loss anemia due to chronic gastroin testinal bleed and acute worsening of chronic thrombocytopenia due to idiopathic thrombocytopenic pur jaya. PAST MEDICAL HISTORY: 1. ITP. 2. Chronic ischemic colitis of right and transverse colon. 3. Diabetes mellitus. 4. Coronary artery disease, status post stent placement to LAD in 10/2016. She was on aspirin and P lavix, but was taken off of Plavix earlier this year because of the GI bleed. 5. History of ischemic CVA in 11/2016. 6. Hypertension. 7. Dyslipidemia. 8. Chronic anemia requiring blood transfusions in the past secondary to GI bleed. 9. Paroxysmal atrial fibrillation supposedly on Coumadin for the last one week. The patient is sche duled to undergo Watchman device by Dr. Ramirez in the near future. PAST SURGICAL HISTORY: 1. EGD and colonoscopy. 2. Cardiac catheterization. 3. CABG in 2006. 4. Bilateral tubal ligation. 5. Oophorectomy. 6. Breast augmentation. 7. Tummy tuck. 8. Knee surgery. 9. Cholecystectomy. ALLERGIES: CIPROFLOXACIN, LISINOPRIL. CURRENT HOME MEDICATIONS: 1. Coumadin 2 mg. The patient has been holding it for the last few days. 2. Clonidine 0.1 mg once a day. 3. Aspirin 325 mg daily. 4. Flonase 50 mcg daily. 5. Prozac 10 mg daily. 6. Toprol-XL 25 mg daily. 7. Humalog insulin. 8. Robaxin 500 mg daily. 9. Crestor 20 mg daily. 10. Gabapentin 400 mg daily. 11. Protonix 40 mg daily. 12. Zyrtec 10 mg daily. 13. Isosorbide mononitrate, unknown dose. 14. Breo-Ellipta daily. FAMILY HISTORY: No history of premature coronary artery disease, diabetes, hypertension. SOCIAL HISTORY: She lives at home. No history of drug, tobacco or alcohol abuse. REVIEW OF SYSTEMS: The following complete review of systems was negative, unless otherwise mentioned in the HPI or below: Constitutional: Weight loss or gain, ability to conduct usual activities. Skin: Rash, itching. Eyes: Double vision, pain. ENT/Mouth: Nose bleeding, neck stiffness, pain, tenderness. Cardiovascular: Palpitations, dyspnea on exertion, orthopnea. Respiratory: Shortness of breath, wheezing, cough, hemoptysis, fever or night sweats. Gastrointestinal: Poor appetite, abdominal pain, heartburn, nausea, vomiting, constipation, or diarr hea. Genitourinary: Urgency, frequency, dysuria, nocturia. Musculoskeletal: Pain, swelling. Neurologic/Psychiatric: Anxiety, depression. Allergy/Immunologic: Skin rash, bleeding tendency. It is negative except for those mentioned in the history and physical. PHYSICAL EXAMINATION: VITAL SIGNS: Upon presentation include blood pressure 95/45, pulse of 72, respirations 19, temperatu re 97.9, and oxygen saturation 100% on room air. GENERAL: No acute distress. She is awake, alert, oriented x3, not in respiratory distress on examin ation. HEENT: She does appear pale with conjunctivae pallor. Mucous membrane is moist and pink. No oropha ryngeal exudate or erythema. Head is normocephalic, atraumatic. Pupils are equal, reactive to light and accommodation. NECK: Supple without any lymphadenopathy, JVD or bruit. CHEST: Clear to auscultation without any wheezing, rales or rhonchi. CARDIOVASCULAR: Rhythm is regular without any murmur, rubs or gallops. ABDOMEN: Soft, nontender, nondistended, positive bowel sounds. EXTREMITIES: Free of any cyanosis, clubbing, or edema. NEUROLOGIC: Examination is nonfocal. SKIN: Shows diffuse petechia to arms. PSYCHIATRIC: Flat affect. LABORATORY DATA AND IMAGING DATA: CBC shows WBCs at 12.9 with 72% neutrophils, hemoglobin 6.7, plate let count of 3,000, INR 1.3. Serum chemistries: BUN 30, creatinine 1.66, blood sugar 166. Cardiac enzymes within normal limits. BNP 96. Chest x-ray by my review has no evidence to suggest pulmonary edema, effusion or infiltrate. EKG by my review shows normal sinus rhythm. IMPRESSION AND PLAN: 1. Acute blood loss anemia. The patient is being actively transfused packed RBCs. We will recheck hemoglobin and hematocrit after that. She has chronic gastrointestinal bleed and we will consult Gas troenterology for further recommendations. She reports that she needs colectomy for her chronic isch emic colitis. At this time, we will stabilize her first. 2. Thrombocytopenia. This is secondary to idiopathic thrombocytopenic purpura. We will consult Hem atology for further recommendations and continue with high dose steroids at this time. She is gettin g 1 unit of platelet transfusion. We will avoid any other antiplatelet or anticoagulants at this kermit e and monitor carefully. 3. Chronic paroxysmal atrial fibrillation. The patient is currently in normal sinus rhythm. She wa s supposed to be on anticoagulation, which will obviously be held at this time. We will consult her head usher, Dr. Man for further recommendations if she goes into atrial fibrillation. For th e time being, hemodynamic stability will be maintained. 4. Diabetes mellitus. Add insulin sliding scale with Accu-Cheks before meals and at bedtime. 5. History of coronary artery disease. The patient is on aspirin, which we will have to hold at thi s time given the active bleed and blood loss anemia. She was taken off of Plavix because of the gold rointestinal bleed in the past as well. Once again, we will consult Cardiology if needed. She is cu rrently asymptomatic with regards to any cardiac symptoms. She had a recent echocardiogram done juan f ier this year in 08/2017, which showed ejection fraction of 55%-60% with normal right ventricular and right atrial size without any significant valvular abnormalities. 6. History of ischemic cerebrovascular accident. Restart aspirin once the patient is not bleeding a nymore. Hold aspirin for now. We will continue with Crestor for now. 7. Hypertension. The patient's blood pressure is marginal today. We will resuscitate her with IV f luids and hold all antihypertensives for now. 8. History of anxiety and depression. We will restart her home medications once dosage is confirmed . 9. Dyslipidemia, resume statin. 10. Moderate protein calorie malnutrition. 11. Mild obesity. Body mass index yet to be determined. 12. Code status: FULL CODE discussed with the patient. DISPOSITION: Ms. Dickinson is critically ill at this time with significant symptomatic acute blood los s anemia: Active GI bleed rather slow as well as acute worsening of her ITP. She will be admitted t o IMCU. Estimated length of stay is at least 2-3 midnights. Total time spent in the care of this patient is 35 minutes.
[2017-10-26] MEDS ORDERED: Calcium Carbonate 500 MG ChewTAB PO PRN (21:12)
[2017-10-26] MEDS ORDERED: HumaLOG 300 UNITS/3 ML VIAL SC PRN (21:12)
[2017-10-26] MEDS ORDERED: Bisacodyl 5 MG TAB PO PRN (21:12)
[2017-10-26] MEDS ORDERED: Senokot 8.6 MG TAB PO PRN (21:12)
[2017-10-26] MEDS ORDERED: Mag-Al 1200 mg/1200 mg/30 ML UDCUP PO PRN (21:12)
[2017-10-26] MEDS ORDERED: cloNIDine 0.1 MG TAB PO PRN (21:12)
[2017-10-26] MEDS ORDERED: traMADol HCl 50 MG TAB PO PRN (21:12)
[2017-10-26] MEDS ORDERED: Benzonatate 100 MG CAP PO PRN (21:12)
[2017-10-26] MEDS ORDERED: Ondansetron HCl/PF 4 MG/2 ML Vial IVP PRN (21:12)
[2017-10-26] MEDS ORDERED: Nitroglycerin 0.4 MG TAB (25 Tab Bottle) SL PRN (21:12)
[2017-10-26] MEDS ORDERED: Lorazepam 1 MG TAB PO PRN (21:12)
[2017-10-26] MEDS ORDERED: Dextrose 50% Abboject 50 ML SYRINGE SLOW IVP PRN (21:12)
[2017-10-26] MEDS ORDERED: Diabetic Tussin 200 MG/10 ML UDCUP PO PRN (21:12)
[2017-10-26] MEDS ORDERED: Dextrose 5% in Water 1,000 ML IV PRN (21:12)
[2017-10-26] MEDS ORDERED: Loratadine 10 MG TAB PO PRN (21:12)
[2017-10-26] MEDS ORDERED: hydrALAZINE 20 MG/ML VIAL SLOW IVP PRN (21:12)
[2017-10-26] MEDS ORDERED: Acetaminophen 325 MG TAB PO PRN (21:12)
[2017-10-26] MEDS ORDERED: predniSONE 20 MG TAB PO SCH (21:45)
[2017-10-26] MEDS: Sodium Chloride 0.9% 1,000 ML IV SCH (21:46)
[2017-10-27] MEDS: HumaLOG 300 UNITS/3 ML VIAL SC PRN ×3 (06:34→17:01)
[2017-10-27 07:18] LABS: Anion Gap 10 mmol/L (10-20); BUN (Urea Nitrogen) 22 mg/dL (9.8-20.1); Calc. Creatinine Clearance 73 mL/min (70-130); Calcium 8.7 mg/dL (7.8-10.44); Carbon Dioxide 22 mmol/L (23-31); Chloride 109 mmol/L (98-107); Estimated GFR-MDRD 52
[2017-10-27 07:19] LABS: #Eosinphils 0.1 thou/uL (0.0-0.7); #Lymphocytes 0.9 thou/uL (1.20-3.40); #Monocytes 0.2 thou/uL (0.11-0.59); %Basophils 0.1 % (0.0-1.0); %Eosinophils 0.8 % (0.0-10.0); %Lymphocytes 8.9 % (21.0-51.0); %Monocytes 1.6 % (0.0-10.0); Hematocrit 26.4 % (36.0-47.0); Red Blood Cell (RBC) Count 3.03 mill/uL (4.20-5.40); White Blood Cell (WBC) Count 10.2 thou/uL (4.8-10.8)
[2017-10-27] MEDS: predniSONE 20 MG TAB PO SCH ×2 (07:41→17:01)
[2017-10-27] MEDS: OCTAGAM 10% 60 GM in Admixture Fee 1 EACH IVPB SCH (11:12)
[2017-10-27] MEDS: Sodium Chloride 0.9% 1,000 ML IV SCH (11:12)
--- NOTE | 2017-10-27 12:15 | CON ---
DATE OF ADMISSION: 10/26/2017 DATE OF CONSULTATION: 10/27/2017 HISTORY OF PRESENT ILLNESS: Ms. Dickinson is a 67-year-old female with known chronic ITP as well as is chemic colitis and atrial fibrillation who presented to the emergency room yesterday with shortness o f breath. At that time, her hemoglobin was found to be 6.7 and she was admitted. Her platelets were also 3000. The ITP has been a diagnosis chronically and her last platelet count that she was aware of was in the 60,000 range. She has been diagnosed with atrial fibrillation and is in need of a Watc hman procedure and was placed on Coumadin 1 week ago in anticipation of the Watchman. Her INR few da ys ago with up to 7 and the Coumadin was stopped, her INR on admission was 1.3. She also has a chron ic ischemic colitis and has had some intermittent GI bleeding for the last several months. She does not think her bleeding is currently in worse, but she does continue to have bleeding. She denies nos ebleeds and no gum bleeding. She denies any crampy abdominal pain or diarrhea currently. The shortn ess of breath has improved since the blood transfusion. She did get a platelet transfusion in the em ergency room and was started on steroids. Unfortunately, in the last 12 hours, [place] [id number] with steroids and a platelet transfusion. Her hemoglobin is up to 8.6 and her breathing is better. PAST MEDICAL HISTORY: 1. Chronic ITP. 2. Atrial fibrillation, in need of a Watchman and anticoagulation. 3. Chronic ischemic colitis. 4. Diabetes. 5. Coronary artery disease. 6. History of ischemic CVA in 11/2016. 7. Hypertension. 8. Hyperlipidemia. ALLERGIES: CIPROFLOXACIN, LISINOPRIL. CURRENT MEDICATIONS: 1. Tylenol 650 mg p.o. q.4 hours p.r.n. 2. Maalox p.r.n. 3. Tessalon Perles p.r.n. 4. Dulcolax p.r.n. 5. Tums p.r.n. 6. Catapres 0.1 mg p.o. q.4 hours p.r.n. 7. Hydralazine 10 mg IV q.4 hours p.r.n. 8. Insulin lispro sliding scale. 9. Claritin 10 mg p.o. daily. 10. Ativan 1 mg p.o. q.4 hours p.r.n. 11. Nitroglycerin p.r.n. 12. Zofran 4 mg IV q.6 hours p.r.n. 13. Prednisone 40 mg p.o. b.i.d. 14. Senokot p.r.n. 15. Tramadol 50 mg p.o. q.4 hours p.r.n. SOCIAL HISTORY: She lives outside of [place]. Denies current tobacco or alcohol use. She does hav e a primary care doctor, Dr. Huang in [place]. REVIEW OF SYSTEMS: Otherwise, 10-point review of systems is negative. PHYSICAL EXAMINATION: VITAL SIGNS: Temperature 98.1, pulse 70, respirations 16, O2 sat 100% on room air, blood pressure 11 5-150/43-50. GENERAL: She is quite pleasant, in no acute distress, lying supine. HEENT: Extraocular muscles are intact. Pupils are reactive to light. She has no scleral hemorrhage . She has no mucosal hemorrhage in her oropharynx. NECK: Supple, without lymphadenopathy. CARDIOVASCULAR: Irregularly irregular rhythm. LUNGS: Clear to auscultation bilaterally. ABDOMEN: Hypoactive bowel sounds. Soft, nontender, nondistended. EXTREMITIES: She has multiple healing ecchymoses but no hematomas, minimal petechia. LABORATORY: White blood cell count 10.2, hemoglobin 8.6, platelets 2000. Sodium 137, potassium 4.3, chloride 109, CO2 of 22, BUN 22, creatinine 1.0, GFR 52, glucose 241, calcium 8.7. ASSESSMENT: Ms. Dickinson is a 67-year-old female with: 1. ITP, relapsed, chronic. 2. Chronic ischemic colitis with an intermittent gastrointestinal bleed. 3. Atrial fibrillation in need of anticoagulation. 4. Bruising. PLAN: 1. Because her platelets have not come up with the steroids and she is having a GI bleed, although t his is chronic, I would recommend IVIG. We will start this today. She will get the first dose and m ay need up to 3 days of dosing, she understands this. 2. I would continue her steroids for now. 3. We can consider Promacta as an outpatient. She will need anticoagulation for the Watchman. We c an discuss this further once her platelets are higher. 4. I would recommend daily CBC. 5. Consideration of transfer out of telemetry.
--- NOTE | 2017-10-27 13:11 | PDOC.PN ---
- Subjective Encounter Start Date: 10/27/17 Encounter Start Time: 13:09 Subjective: feels better today.no more active bleed.no fever/chills - Objective MAR Reviewed: Yes Vital Signs & Weight: Vital Signs (12 hours) Temp Pulse Pulse Resp BP BP Pulse Ox 10/27/17 08:00 98.1 F 70 16 151/50 H 100 10/27/17 04:00 98.3 F 68 18 128/50 L 99 10/27/17 02:13 98.6 F 68 16 115/43 L 98 10/27/17 02:11 98.3 F 68 16 119/59 L 10/27/17 01:48 98.3 F 67 16 120/52 L 99 Weight Weight 193 lb 4.8 oz I&O: 10/26/17 10/27/17 10/28/17 06:59 06:59 06:59 Intake Total 770 Output Total 1200 Balance -430 Result Diagrams: 10/27/17 06:50 10/27/17 06:50 Additional Labs: Accuchecks 10/27/17 10/27/17 11:08 05:32 POC Glucose 277 H 244 H Phys Exam - Physical Examination Constitutional: NAD HEENT: PERRLA, moist MMs, sclera anicteric, oral pharynx no lesions Neck: no nodes, no JVD, supple, full ROM Respiratory: no wheezing, no rales, no rhonchi, clear to auscultation bilateral Cardiovascular: RRR, no significant murmur, no rub, gallop Gastrointestinal: soft, non-tender, no distention, positive bowel sounds Musculoskeletal: no edema, pulses present, edema present Neurological: non-focal, normal sensation, moves all 4 limbs Psychiatric: normal affect, A&O x 3 Skin: no rash Dx/Plan (1) Acute blood loss anemia Code(s): D62 - ACUTE POSTHEMORRHAGIC ANEMIA Status: Acute Comment: s/p 2u PRBC's, H/H improved, repeat CBC in am (2) Acute ITP Code(s): D69.3 - IMMUNE THROMBOCYTOPENIC PURPURA Status: Acute Comment: Started on Steroids and IVIG added today.10/27/17.S/P 1 unit platelets (3) H/O: GI bleed Code(s): Z87.19 - PERSONAL HISTORY OF OTHER DISEASES OF THE DIGESTIVE SYSTEM Status: Chronic Comment: sec to recent isch colitis and coagulopathy (4) Ischemic colitis Code(s): K55.9 - VASCULAR DISORDER OF INTESTINE, UNSPECIFIED Status: Acute Comment: Apperas Chronic (5) CAD (coronary artery disease) Code(s): I25.10 - ATHSCL HEART DISEASE OF [place] CORONARY ARTERY W/O ANG PCTRS Status: Chronic Qualifiers: (6) Chronic anemia Code(s): D64.9 - ANEMIA, UNSPECIFIED Status: Chronic (7) DM2 (diabetes mellitus, type 2) Status: Chronic Qualifiers: Comment: ISS, hold long-acting insulin pending consistent po intake (8) H/O: CVA (cerebrovascular accident) Code(s): Z86.73 - PRSNL HX OF TIA (TIA), AND CEREB INFRC W/O RESID DEFICITS Status: Chronic (9) HLD (hyperlipidemia) Code(s): E78.5 - HYPERLIPIDEMIA, UNSPECIFIED Status: Chronic Qualifiers: (10) HTN (hypertension) Code(s): I10 - ESSENTIAL (PRIMARY) HYPERTENSION Status: Chronic Qualifiers: Comment: Resume home antihypertensive regimen, serial monitoring (11) Paroxysmal atrial fibrillation Code(s): I48.0 - PAROXYSMAL ATRIAL FIBRILLATION Status: Acute Comment: Watchman device in near future.Dr. Ramirez & Dr. Man following as an OP (12) Chronic ITP (idiopathic thrombocytopenia) Code(s): D69.3 - IMMUNE THROMBOCYTOPENIC PURPURA Status: Acute Comment: Not on any chcf steroids - Plan out of bed/ambulate, DVT proph w/SCDs started on IVIG.appreciate Oncology input.cont Po steroids -: monitor H/H,platelet counts. no active bleed.GI recs requested -: Off of coumadin now .NSR.if recurrent a-fib,will consult cardiology -: hemodynamically stable. will transfer to tele -: restart home meds. hold Cozaar given RICARDA on presentation. * . Review of Systems - Review of Systems Constitutional: weakness, malaise. negative: fever, chills, sweats, other Eyes: negative: Pain, Vision Change, Conjunctivae Inflammation, Eyelid Inflammation, Redness, Other Respiratory: negative: Cough, Dry, Shortness of Breath, Hemoptysis, SOB with Excertion, Pleuritic Pain, Sputum, Wheezing Cardiovascular: negative: chest pain, palpitations, orthopnea, paroxysmal nocturnal dyspnea, edema, light headedness, other Gastrointestinal: negative: Nausea, Vomiting, Abdominal Pain, Diarrhea, Constipation, Melena, Hematochezia, Other Genitourinary: negative: Dysuria, Frequency, Incontinence, Hematuria, Retention , Other Musculoskeletal: negative: Neck Pain, Shoulder Pain, Arm Pain, Back Pain, Hand Pain, Leg Pain, Foot Pain, Other Skin: Other (petechiae) Neurological: negative: Weakness, Numbness, Incoordination, Change in Speech, Confusion, Seizures, Other - Medications/Allergies Allergies/Adverse Reactions: Allergies Allergy/AdvReac Type Severity Reaction Status Date / Time ciprofloxacin [From Cipro] Allergy Verified 04/28/17 05:20 lisinopril Allergy Verified 04/28/17 05:20 Medications: Current Medications Acetaminophen (Tylenol) 650 mg PO Q4H PRN PRN Reason: Headache/Fever or Pain Al Hydroxide/Mg Hydroxide (Maalox) 30 ml PO Q6H PRN PRN Reason: Heartburn or Indigestion Albuterol/Ipratropium (Duoneb) 3 ml NEB QID PRN PRN Reason: Wheezing Benzonatate (Tessalon) 100 mg PO Q4H PRN PRN Reason: Cough Bisacodyl (Dulcolax) 10 mg PO DAILYPRN PRN PRN Reason: Constipation Calcium Carbonate (Tums) 1,000 mg PO Q4H PRN PRN Reason: Heartburn or Indigestion Clonidine (Catapres) 0.1 mg PO Q4H PRN PRN Reason: Systolic BP > 160 Clonidine (Catapres) 0.1 mg PO DAILY [employer] Dextrose/Water (Dextrose 50%) 25 gm SLOW IVP PRN PRN PRN Reason: Hypoglycemia Fluoxetine HCl (Prozac) 10 mg PO QAM [employer] Fluticasone Propionate (Flonase Nasal [place]) gm NASAL DAILY [employer] Gabapentin (Neurontin) 400 mg PO HS [employer] Glucagon (Glucagon) 1 mg IM PRN PRN PRN Reason: Hypoglycemia Guaifenesin (Robitussin Sf) 200 mg PO Q4H PRN PRN Reason: Cough Hydralazine HCl (Apresoline) 10 mg SLOW IVP Q4H PRN PRN Reason: Systolic BP > 170 Sodium Chloride (Normal Saline 0.9%) 1,000 mls @ 75 mls/hr IV .[id number] [facility] Last Admin: 10/27/17 11:12 Dose: 1,000 mls Dextrose/Water (D5w) 1,000 mls @ 0 mls/hr IV .Q0M PRN; As Directed PRN Reason: Hypoglycemia Immune Globulin 60 gm/ (Miscellaneous Medication) 600 mls @ 0 mls/hr IVPB Q24HR [employer] PRN Reason: As Directed Stop: 10/29/17 11:31 Last Admin: 10/27/17 11:12 Dose: 600 mls Insulin Human Lispro (Humalog) 0 units SC .MODERATE SLIDING SC PRN PRN Reason: Moderate Correctional Scale Last Admin: 10/27/17 11:11 Dose: 6 unit Insulin Human Lispro (Humalog) 0 units SC .BEDTIME SLIDING SC PRN PRN Reason: Bedtime Correctional Scale Isosorbide Mononitrate (Imdur) 60 mg PO DAILY [facility] Loratadine (Claritin) 10 mg PO DAILYPRN PRN PRN Reason: Sinus Symptoms Lorazepam (Ativan) 1 mg PO Q4H PRN PRN Reason: Anxiety/Agitation Methocarbamol (Robaxin) 500 mg PO DAILY [facility] Metoprolol Succinate (Toprol Xl) 25 mg PO DAILY [facility] Nitroglycerin (Nitrostat) 0.4 mg SL Q5MIN PRN PRN Reason: Chest Pain Non-Formulary Medication (Fluticasone/Vilanterol [Breo Ellipta 200-25 Mcg Inh]) 1 puff INH DAILY [facility] Non-Formulary Medication (Montelukast Sodium [Montelukast Sodium]) 10 mg PO QPM [employer] Ondansetron HCl (Zofran) 4 mg IVP Q6H PRN PRN Reason: Nausea/Vomiting Pantoprazole Sodium (Protonix) 40 mg PO BID [facility] Prednisone (Prednisone) 40 mg PO BID-[facility] Last Admin: 10/27/17 07:41 Dose: 40 mg Rosuvastatin Calcium (Crestor) 20 mg PO HS [employer] Senna (Senokot) 2 tab PO HSPRN PRN PRN Reason: Constipation Sitagliptin Phosphate (Januvia) 100 mg PO DAILY [facility] Tramadol HCl (Ultram) 50 mg PO Q4H PRN PRN Reason: Moderate Pain (4-6)
[2017-10-27] MEDS: Mometasone/Formoterol 120 PUFF INHALER INH SCH (19:10)
--- NOTE | 2017-10-27 19:16 | CON ---
DATE OF CONSULTATION: 10/27/2017 CONSULTING PHYSICIAN: Dr. Dumont. REASON FOR CONSULTATION: Shortness of breath. HISTORY OF PRESENT ILLNESS: Ms. Dickinson is a pleasant 67-year-old female who was admitted to the [facility] yesterday with increasing shortness of breath. She says she has had some bright red blood per rectum. She was also found to be severely thrombocytopenic. She says about 6 months ago, she was di agnosed with idiopathic thrombocytopenia purpura and is being kept on no medications. Her shortness of breath she describes as occasional chest tightness. She says she has had no wheezing, no cough, n o congestion. She is not producing any sputum. She has no history of reactive airway disease. PAST MEDICAL HISTORY: 1. ITP. 2. Ischemic colitis, which is chronic. 3. Diabetes mellitus. 4. Coronary artery disease. 5. Stroke. 6. Hypertension. 7. Hyperlipidemia. 8. Chronic anemia. 9. Paroxysmal atrial fibrillation. PAST SURGICAL HISTORY: 1. EGD. 2. Colonoscopy. 3. Cardiac catheterization. 4. Coronary artery bypass grafting surgery. 5. Bilateral tubal ligation. 6. Oophorectomy. 7. Breast augmentation. 8. Tummy tuck. 9. Knee surgery. 10. Cholecystectomy. ALLERGIES: CIPRO and LISINOPRIL. MEDICATIONS PRIOR TO ADMISSION: Coumadin, clonidine, aspirin, Flonase, Prozac, Toprol, Humulin insul in, Robaxin, Crestor, gabapentin, Protonix, Zyrtec, Isosorbide mononitrate and Breo Ellipta. SOCIAL HISTORY: Nonsmoker, does not consume alcohol. FAMILY MEDICAL HISTORY: Unremarkable. REVIEW OF SYSTEMS: No weight gain or weight loss. No rashes. No double vision. No palpitations. She has had some wheezing. No hematemesis or melena, but she has hematochezia. No hematuria, no dys uria. PHYSICAL EXAMINATION: VITAL SIGNS: Temperature 98.1, pulse 70, respirations 16, O2 sat 100%, blood pressure 151/50. GENERAL: She is awake and alert, and in no distress. HEENT: Unremarkable. NECK: No adenopathy or JVD. LUNGS: Clear to auscultation without wheezing. CARDIAC: S1, S2 regular, without murmur. ABDOMEN: Soft and nontender. EXTREMITIES: No clubbing, cyanosis, or edema. NEUROLOGIC: Intact. SKIN: Notable for some purpura on her legs. LABORATORY DATA: White blood cell count 10.2, hematocrit 26.4, platelet count 2. INR 1.3. Sodium 1 37, potassium 4.3, chloride 109, CO2 of 22, BUN 22, creatinine 1.1, glucose 241. ASSESSMENT: 1. Multifactorial dyspnea -- probably related to anemia. She has been worked up for reactive airway disease in the past and I do not think we have found anything concrete. Her chest x-ray which I rev iewed, does not show any acute abnormalities. 2. Idiopathic thrombocytopenic purpura. 3. Anemia. RECOMMENDATIONS: Treatments with the ITP with gamma globulin as you are doing. I think she is stable enough to be tra nsferred out to the floor. I do not see any immediate needs in the IMCU area.
[2017-10-27] MEDS: Montelukast Sodium 10 mg Tablet PO SCH (20:37)
[2017-10-27] MEDS: Gabapentin 400 MG CAP PO SCH (20:37)
--- NOTE | 2017-10-27 22:15 | CON ---
DATE OF CONSULTATION: 10/27/2017 REFERRING PHYSICIAN: Stephanie Dumont MD REASON FOR CONSULTATION: GI bleeding, anemia. HISTORY OF PRESENT ILLNESS: Ms. Katie Dickinson is a very pleasant 67-year-old female with dyspnea of r ecent onset. The patient is feeling dyspnea with minimal exertion over the last several days. Appar ently, she may also feeling weak and tired over the last several weeks. The patient has a history of ITP and also ischemic colitis from before. The patient has a history of atrial fibrillation and had seen Dr. Ramirez recently. The plan is being made for Watchman device implant in the near future. T he patient was placed on Coumadin 1 week ago and the patient also has some bleeding over the last sev eral days. The bleeding is persistent. The bleeding is actually better. The patient came to the ER because of the above reason. She had a CBC done and was found to have severe thrombocytopenia, took it for platelet count yesterday and anemia with hemoglobin of 6 grams. The patient stopped taking C oumadin a couple of days ago because of hematochezia. The patient has had anemia from before. The ana rubio had seen Dr. Jean Pierre Hart in 2017. She had an EGD and colonoscopy here this year; as per the report, she has some erosions in the upper GI tract. She was also found to have ulceration in the a scending colon, transverse colon, and it was felt that she has ischemic colitis. She had a colonosco py in 07/2017 and at that time, the colonoscopy findings are much better than the last one. She stil l has some ulceration in the ascending colon and transverse colon, but not as bad as before. The pat ient did have a colectomy because of the ischemic colitis. Since admission, the patient has been tra nsfused. Her hemoglobin has come up to 8.6, hematocrit 26.4. Her platelet count remains low at 2. The patient has had no hematochezia last night or this morning. She has no abdominal pain at present time. The patient was seen by bliss press operator in the last admission and was found to have ITP. Appare ntly, she was on prednisone tapering doses and stopped it. There is some mention of starting the pat ient on immunosuppressive therapy before considering . No relevant history. ALLERGIES: CIPROFLOXACIN, LISINOPRIL. SOCIAL HISTORY: The patient does not smoke, but drinks alcohol once in a while. However, she has se condhand exposure to smoking as well as also chronic smoker. MEDICAL ILLNESSES: 1. ITP. 2. Chronic ischemic colitis by colonoscopy. 3. Diabetes mellitus. 4. Coronary artery disease, status post stent placement. 5. Status post CVA after stent placement with dysarthria and expressive aphasia for a while. 6. Hypertension. 7. Dyslipidemia. 8. Chronic anemia. 9. Paroxysmal atrial fibrillation. SURGERIES: 1. Colonoscopy in 2016. 2. Status post stent placement in 2015. 3. Status post coronary artery bypass graft. 4. Tubal ligation. 5. Oophorectomy. 6. Breast augmentation. 7. Tummy tuck. 8. Knee surgery. 9. Cholecystectomy. MEDICATIONS: Include Coumadin, clonidine, aspirin, Flonase, Prozac, Toprol, Humalog insulin, Robaxin , Crestor, gabapentin, Protonix, Zyrtec, Isordil, Breo Ellipta. REVIEW OF SYSTEMS: A 10-point system reviewed. Constitutional: No weight loss or gain. No fever. ____. INSPECTOR PAWNSHOP DETAIL: Positive history of CVA with recovery. At the present time, no dizziness, no syncope, no headache. Respiratory system: No history of chronic cough, hemoptysis, but she has been feeling dyspneic recently. Cardiovascular: No history of dyspnea, no orthopnea or PND, no chest pain, no pa lpitations. Gastrointestinal: No abdominal pain, nausea or vomiting, but does have a history of hem atochezia recently. Neuropsychiatric: History of anxiety and depression. Genitourinary: No dysuri a, hematuria, or frequency of urination. Musculoskeletal: Some pain and arthralgias. PHYSICAL EXAMINATION: GENERAL: Revealed a very pleasant female who appears very comfortable. She is awake, alert, and com municative. VITAL SIGNS: She is afebrile. Her pulse is 72, blood pressure 100/70. HEENT: Conjunctivae clear. NECK: Supple. No adenitis or thyromegaly noted. CARDIOVASCULAR: First and second heart sounds. She has a grade 3/6 systolic murmur. LUNGS: Clear to auscultation. ABDOMEN: Soft to palpate. Abdomen is nontender. There is no organomegaly or masses. EXTREMITIES: No edema. However, over the thigh area, she does have some ecchymotic areas and she cl aims that . LABORATORY DATA: WBC yesterday at 12,900, today 10,200; hemoglobin 6.7 and after transfusion is 8.6; hematocrit 21.6; platelet count ; polymorphs 86, lymphocytes 8, monocytes 9. Serum chemistries show sodium 138, potassium 3.5, chloride 106, bicarbonate 19, BUN is 30, creatinine 1.66, glucose 16 6, magnesium 2.3, bilirubin 0.4, AST 12, ALT 10, alkaline phosphatase 50, albumin is 3.4. Coagulatio n: PT 16, INR is 1.3. CLINICAL IMPRESSION: 1. A 67-year-old female with anemia and severe thrombocytopenia. She has a history idiopathic throm bocytopenic purpura from before. She has had a blood transfusion yesterday and the blood count dropp ed to 8.7 today. She had no bleeding through the night. 2. History of idiopathic thrombocytopenic purpura, not on any steroids. 3. Atrial fibrillation was reported recently. 4. Status post coronary artery bypass graft and stent placement. 5. History of cerebrovascular accident with recovery. 6. History of ischemic colitis. Last colonoscopy actually appeared better than the first one in 2016. Overall, recommendation, the pressing issue is thrombocytopenia, which needed to addressed. A t the present time, I see no reason for endoscopic studies in the setting of thrombocytopenia. She h ad EGD and colonoscopy this year and the last one was done in 07/2017. I really see no need to repea t endoscopic studies. RECOMMENDATIONS: Correction of thrombocytopenia. Hematology consult and further recommendations dep ending based on respond to steroids. Dr. Jean Pierre Hart will assume care from tomorrow.
[2017-10-28 06:33] LABS: #Basophils 0.1 thou/uL (0.0-0.2); #Eosinphils 0.1 thou/uL (0.0-0.7); #Lymphocytes 1.2 thou/uL (1.20-3.40); #Monocytes 0.4 thou/uL (0.11-0.59); #Neutrophils 17.1 thou/uL (1.40-6.50); %Basophils 0.3 % (0.0-1.0); %Eosinophils 0.3 % (0.0-10.0); %Lymphocytes 6.3 % (21.0-51.0); %Monocytes 2.2 % (0.0-10.0); Mean Platelet Volume 11.2 fL (7.4-10.4); Red Blood Cell (RBC) Count 3.09 mill/uL (4.20-5.40); White Blood Cell (WBC) Count 18.9 thou/uL (4.8-10.8)
[2017-10-28] MEDS: Sodium Chloride 0.9% 1,000 ML IV SCH ×2 (07:29→13:03)
[2017-10-28] MEDS: Mometasone/Formoterol 120 PUFF INHALER INH SCH ×2 (08:17→20:03)
[2017-10-28] MEDS: Fluticasone Propionate Nasal Spray 16 gm Bottle NASAL SCH (08:17)
[2017-10-28] MEDS: Methocarbamol 500 MG TAB PO SCH (08:48)
[2017-10-28] MEDS: Alogliptin 25 MG TAB PO SCH (08:48)
[2017-10-28] MEDS: FLUoxetine HCl 10 MG CAP PO SCH (08:48)
[2017-10-28] MEDS: cloNIDine 0.1 MG TAB PO SCH (08:48)
[2017-10-28] MEDS: predniSONE 20 MG TAB PO SCH ×2 (08:49→17:44)
[2017-10-28] MEDS: HumaLOG 300 UNITS/3 ML VIAL SC PRN ×2 (08:59→12:04)
[2017-10-28 09:22] VITALS: BMI 34.0
--- NOTE | 2017-10-28 10:37 | PRG ---
DATE OF SERVICE: 10/28/2017 SUBJECTIVE: Ms. Dickinson is feeling okay, still low of energy. She is tolerating her diet. She says she had a couple of bowel movements since yesterday, both with red smears on wiping. This is about her baseline in terms of overt bleeding. Hemoglobin stabilized. She got started on IVIG. OBJECTIVE: VITAL SIGNS: Temperature 97.6, pulse 70, blood pressure 187/74, 99% oxygen saturation on room air. GENERAL: No acute distress. HEART: Regular rate and rhythm. LUNGS: Clear to auscultation bilaterally. ABDOMEN: Soft and nontender to palpation. EXTREMITIES: No peripheral edema. LABORATORY STUDIES: Hemoglobin stable from yesterday at 8.6. WBC 18.9, platelets are now up to 51. Glucose 321, BUN 22, creatinine 1.06. ASSESSMENT AND PLAN: 1. Ischemic colitis, chronic, right-sided. 2. Anemia of gastrointestinal blood loss. 3. Severe thrombocytopenia. The patient's hemoglobin has stabilized. I discussed with Ms. Dickinson that her continued overt bleeding is likely secondary to her chronic ischemic colitis which has been visualized on [address] Hart. The primary issue remains the severe thrombocytopenia which is contributing to the chronic gastrointe stinal blood loss. No need for repeat colonoscopy at this time. The patient will continue with john tment for ITP as directed by Hematology. Continue to trend H&H, transfuse as necessary. Continue wi th heart healthy diet. Please call at any time with questions or concerns.
[2017-10-28] MEDS: OCTAGAM 10% 60 GM in Admixture Fee 1 EACH IVPB SCH (12:02)
--- NOTE | 2017-10-28 12:55 | PDOC.PN ---
- Subjective Encounter Start Date: 10/28/17 Encounter Start Time: 13:05 -: non-verbal, old records requested/rev Subjective: Pt seen and Examined for ITP, Ichemic Colitis -: C/o SOB on minimal activity -: denies any fever, active bleeding, chest pain, Nausea, Vomiting - Objective Vital Signs & Weight: Vital Signs (12 hours) Temp Pulse Resp BP BP Pulse Ox 10/28/17 11:25 97.9 F 62 16 128/60 99 10/28/17 08:48 187/74 H 10/28/17 07:21 97.6 F 70 16 171/72 H 99 10/28/17 04:08 98.1 F 82 18 165/69 H 98 10/28/17 01:00 149/64 H Weight Admit Weight 193 lb 4.8 oz Weight 191 lb 14.4 oz I&O: 10/27/17 10/28/17 10/29/17 06:59 06:59 06:59 Intake Total 770 1289 Output Total 1200 2750 Balance -430 -1461 Result Diagrams: 10/28/17 05:27 10/27/17 06:50 Additional Labs: Accuchecks 10/28/17 10/28/17 10/27/17 10:48 05:57 20:47 POC Glucose 315 H 321 H 127 H 10/27/17 17:00 POC Glucose 244 H Phys Exam - Physical Examination HEENT: PERRLA, moist MMs, sclera anicteric, TM's clear, oral pharynx no lesions , 2+ tonsils Neck: no nodes, no JVD, supple, full ROM Respiratory: no wheezing, no rales, no rhonchi, wheezing present, clear to auscultation bilateral Cardiovascular: RRR, no significant murmur, no rub, gallop, irregular Gastrointestinal: soft, non-tender, no distention, positive bowel sounds Musculoskeletal: no edema, pulses present, edema present Neurological: non-focal, normal sensation, moves all 4 limbs Psychiatric: normal affect, A&O x 3 Dx/Plan (1) Paroxysmal atrial fibrillation Code(s): I48.0 - PAROXYSMAL ATRIAL FIBRILLATION Status: Chronic Comment: Watchman device in near future.Dr. Ramirez & Dr. Man following as an OP (2) Acute ITP Code(s): D69.3 - IMMUNE THROMBOCYTOPENIC PURPURA Status: Acute Comment: Started on Steroids and IVIG added today.10/27/17.S/P 1 unit platelets (3) Acute blood loss anemia Code(s): D62 - ACUTE POSTHEMORRHAGIC ANEMIA Status: Acute Comment: s/p 2u PRBC's, H/H improved, repeat CBC in am (4) Chronic ITP (idiopathic thrombocytopenia) Code(s): D69.3 - IMMUNE THROMBOCYTOPENIC PURPURA Status: Acute Comment: Not on any food service agent steroids (5) Ischemic colitis Code(s): K55.9 - VASCULAR DISORDER OF INTESTINE, UNSPECIFIED Status: Acute Comment: Apperas Chronic (6) Severe thrombocytopenia Code(s): D69.6 - THROMBOCYTOPENIA, UNSPECIFIED Status: Acute (7) CAD (coronary artery disease) Code(s): I25.10 - ATHSCL HEART DISEASE OF [place] CORONARY ARTERY W/O ANG PCTRS Status: Chronic Qualifiers: (8) Chronic anemia Code(s): D64.9 - ANEMIA, UNSPECIFIED Status: Chronic - Plan ut of bed/ambulate, DVT proph w/SCDs -: IVIG day #2 -: Transfuse PRBC and PLatelets PRN and PO steroids -: GI and Hematology consulted * . 1) ITP on IVIG.appreciate Oncology input.cont Po steroids 2)monitor H/H,platelet counts. no active bleed.GI consulted 3)Off of coumadin now .NSR.if recurrent a-fib,will consult cardiology 4)restart home meds. hold Cozaar given RICARDA on presentation.
[2017-10-28] MEDS: Gabapentin 400 MG CAP PO SCH (20:54)
[2017-10-28] MEDS: Montelukast Sodium 10 mg Tablet PO SCH (20:55)
[2017-10-28] MEDS ORDERED: diphenhydrAMINE 50 MG CAP PO SCH (22:00)
[2017-10-29] MEDS: Sodium Chloride 0.9% 1,000 ML IV SCH (04:46)
[2017-10-29 05:27] LABS: #Monocytes 0.4 thou/uL (0.11-0.59); #Neutrophils 10.1 thou/uL (1.40-6.50); %Eosinophils 0.2 % (0.0-10.0); %Lymphocytes 8.9 % (21.0-51.0); %Monocytes 3.2 % (0.0-10.0); Hematocrit 27.4 % (36.0-47.0); Mean Platelet Volume 8.3 fL (7.4-10.4); Red Blood Cell (RBC) Count 3.12 mill/uL (4.20-5.40); White Blood Cell (WBC) Count 11.5 thou/uL (4.8-10.8)
[2017-10-29] MEDS: Mometasone/Formoterol 120 PUFF INHALER INH SCH (07:34)
[2017-10-29] MEDS: predniSONE 20 MG TAB PO SCH ×2 (08:25→17:06)
[2017-10-29] MEDS: cloNIDine 0.1 MG TAB PO SCH (08:25)
[2017-10-29] MEDS: FLUoxetine HCl 10 MG CAP PO SCH (08:25)
[2017-10-29] MEDS: Alogliptin 25 MG TAB PO SCH (08:25)
[2017-10-29] MEDS: Methocarbamol 500 MG TAB PO SCH (08:25)
[2017-10-29] MEDS: Fluticasone Propionate Nasal Spray 16 gm Bottle NASAL SCH (08:27)
[2017-10-29] MEDS: OCTAGAM 10% 60 GM in Admixture Fee 1 EACH IVPB SCH (12:13)
[2017-10-29 12:37] VITALS: BP 166/70; TEMP 98.1
[2017-10-29] MEDS: HumaLOG 300 UNITS/3 ML VIAL SC PRN (12:37)
--- NOTE | 2017-10-30 07:01 | DIS ---
DATE OF ADMISSION: 10/26/2017 DATE OF DISCHARGE: 10/29/2017 ADMITTING DIAGNOSES: 1. Acute blood loss anemia. 2. Thrombocytopenia. 3. Idiopathic thrombocytopenic purpura, chronic atrial fibrillation. 4. History of coronary artery disease, EF 55%-60%. 5. History of cerebrovascular accident. HOSPITAL COURSE: This is a 67-year-old woman with history of ITP, ischemic colitis, and she admitted in the hospital and treated with multiple blood transfusions, GI aerodynamic consultant, Hematology aerodynamic consultant. Patient was started on IVIG to get dose x3. Patient improved. Coumadin was held, high risk for bleeding, thrombocytopenia, so patient was held on Coumadin. DISCHARGE CONDITION: She feeling very good, feeling better. PHYSICAL EXAMINATION: VITAL SIGNS: Her pulse 59, blood pressure 156/70, respirations 16, temperature 99. GENERAL: Alert, oriented. NECK: Supple, no JVD, no thyromegaly. CHEST: Chest has normal vesicular breathing no added sounds. CARDIOVASCULAR: S1, S2, audible S4. ABDOMEN: Soft. EXTREMITIES: No pedal edema. LABORATORY DATA: Lab shows 11.5 WBC, hemoglobin 8.8, hematocrit 27.4, platelets 3 to 101, glucose 175. DISCHARGE MEDICATIONS: She will go aspirin 325 every day, Catapres, gabapentin 400 mg, Imdur 60 mg daily, metoprolol 25 daily, nitroglycerin p.r.n., prednisone 40 mg b.i.d., Crestor 20 mg daily, tramadol p.r.n. FINAL DIAGNOSES: 1. Acute blood loss anemia. 2. Ischemic colitis. 3. Idiopathic thrombocytopenic purpura. 4. Thrombocytopenia. PLAN: Plan to send her home and follow with Hematology as an outpatient. PHILIPP
== END 2017-10-29 17:19 | disposition home or self-care (01) | DRG 813 ==
LOC: ERS 11:26 → IMCU/EMU 17:13 → 2NO 10-27 22:24
PROVIDERS: ADMIT Internal Medicine; ATTEND Internal Medicine
PROC: 30233R1 Transfusion of Nonautologous Platelets into Peripheral Vein, Percutaneous Approach (ICD-10-PCS; principal; 2017-10-26)
PROC: 30233N1 Transfusion of Nonautologous Red Blood Cells into Peripheral Vein, Percutaneous Approach (ICD-10-PCS; 2017-10-26)
DX: D69.3 Immune thrombocytopenic purpura (principal); K55.1 Chronic vascular disorders of intestine; E44.0 Moderate protein-calorie malnutrition; D62 Acute posthemorrhagic anemia; K92.2 Gastrointestinal hemorrhage, unspecified; I48.0 Paroxysmal atrial fibrillation; I48.2 Chronic atrial fibrillation; E11.9 Type 2 diabetes mellitus without complications; E66.9 Obesity, unspecified; E78.5 Hyperlipidemia, unspecified; Z86.73 Personal history of transient ischemic attack (TIA), and cerebral infarction without residual deficits; Z95.1 Presence of aortocoronary bypass graft; Z98.51 Tubal ligation status; Z90.721 Acquired absence of ovaries, unilateral; Z90.49 Acquired absence of other specified parts of digestive tract; Z79.01 Long term (current) use of anticoagulants; I25.10 Atherosclerotic heart disease of native coronary artery without angina pectoris; F41.9 Anxiety disorder, unspecified; F32.9 Major depressive disorder, single episode, unspecified; D69.6 Thrombocytopenia, unspecified; F17.210 Nicotine dependence, cigarettes, uncomplicated; I10 Essential (primary) hypertension
CPT/HCPCS: 36415; 36416; 36430; 71010; 80048; 80053; 81003; 81015; 82553; 83010; 83615; 83690; 83735; 83880; 84484; 85025; 85610; 85730; 86850; 86870; 86900; 86901; 86922; 93005; 96360; J0360; J1568; J7506; P9016; P9035

== ENCOUNTER 2018-02-18 08:56 | Outpatient (CLI) | payer MEDICARE, BC | END 2018-02-18 08:57 | disposition home or self-care (01) | LOC: BICCT 08:56 | PROVIDERS: ATTEND Internal Medicine Cardiovascular Disease | DX: I48.91 Unspecified atrial fibrillation (principal); I48.92 Unspecified atrial flutter; J44.9 Chronic obstructive pulmonary disease, unspecified; I25.10 Atherosclerotic heart disease of native coronary artery without angina pectoris | CPT/HCPCS: 71250 ==

== ENCOUNTER 2018-04-28 10:54 | Outpatient (CLI) | payer MEDICARE, BC ==
[2018-04-28] MEDS ORDERED: ISOVUE-370 76%-LOCM 1 ML ONE (13:09)
== END 2018-04-28 10:55 | disposition home or self-care (01) ==
LOC: BICCT 10:54
PROVIDERS: ATTEND Internal Medicine Cardiovascular Disease
DX: Z48.812 Encounter for surgical aftercare following surgery on the circulatory system (principal); Z95.811 Presence of heart assist device
CPT/HCPCS: 71275; 82565

== ENCOUNTER 2018-11-19 14:53 | Outpatient (CLI) | payer MEDICARE, BC ==
--- NOTE | 2018-11-19 16:59 | BD ---
Exam: DEXA Bone Density 11/19/18 HISTORY: Age related osteoporosis. DEXA bone scan is performed using hologic bone mineral density unit. The patient has had previous rafa shannon in the low back two years ago. Bilateral hip bone mineral density was performed. Right hip: BMD (g/cm2) T-Score: Z-Score: Femoral neck 0.71 -1.2 +0.4 Composite: 0.91 -0.3 1.0 Left hip: 0.66 -1.7 -0.2 Composite: 0.81 -1.1 +0.2 This is compatible with left hip and right hip osteopenia. Impression: Minimal increased risk of osteoporotic fractures with bilateral hip osteopenia noted. POS: BALDO
== END 2018-11-19 14:54 | disposition home or self-care (01) ==
LOC: BICMAMMO 14:53
PROVIDERS: ATTEND Family Medicine
DX: Z12.31 Encounter for screening mammogram for malignant neoplasm of breast (principal); Z13.820 Encounter for screening for osteoporosis; M85.851 Other specified disorders of bone density and structure, right thigh; M85.852 Other specified disorders of bone density and structure, left thigh; Z98.82 Breast implant status
CPT/HCPCS: 77063; 77067; 77080